=== PATIENT | female | born 1985 | race Hispanic/Latino ===

== ENCOUNTER 2017-12-14 09:30 | Day surgery (SDC) | payer OTHER ==
[2017-12-14] MEDS ORDERED: MIDAZOLAM HCL 2 MG/2 ML INJ ONE (10:02)
[2017-12-14] MEDS ORDERED: PROPOFOL 200 MG/20 ML VIAL IV ONE (10:02)
[2017-12-14] MEDS ORDERED: LIDOCAINE 2% MPF 5 ML VIAL ONE (10:03)
[2017-12-14] MEDS ORDERED: ONDANSETRON 4 MG/2 ML VIAL ONE (10:04)
[2017-12-14] MEDS ORDERED: FENTANYL CITR 100 MCG/2 ML ONE (10:04)
[2017-12-14] MEDS ORDERED: CEFAZOLIN/SWI 1gm 1 GM/10 ML SYR ONE (10:10)
[2017-12-14] MEDS ORDERED: NA CHLORIDE 0.9% 1,000 ML ONE (10:10)
--- NOTE | 2017-12-14 11:01 | P.BOP ---
Preoperative diagnosis: complex abscess right groin, cellulitis abdominal wall Postoperative diagnosis: same Primary procedure: Incision drainage and excisional debridement of complex abscess right groin Secondary procedure: 7x7 cm Estimated blood loss: <10cc Specimen: abscess devitalized tissue Findings: complex abscess right groin, cellulitis abdominal wall Anesthesia: General Transferred to: Recovery Room Condition: Good
[2017-12-14 13:47] VITALS: BP 140/68; TEMP 97.7; O2SAT 97
--- NOTE | 2017-12-14 22:19 | OP ---
Date of Procedure: 12/14/2017 Surgeon: Pierre Sr MD Preoperative Diagnoses: 1.Complex abscess, right groin. 2.Cellulitis, abdominal wall. 3.Diabetes. 4.Morbid obesity. Postoperative Diagnoses: 1.Complex abscess, right groin. 2.Cellulitis, abdominal wall. 3.Diabetes. 4.Morbid obesity. Procedures: Incision and drainage and excisional debridement of a complex abscess, right groin, 7 x 7 x 3 cm. Estimated Blood Loss: Less than 10 cc. Specimen: Abscess, cellulitis tissues. Findings: Complex abscess in the right groin, multiple loculations. Cellulitis of abdominal wall. Anesthesia: General plus local. Indications: This is a case of a 32-year-old patient who has history of diabetes and morbid obesity, comes to us with a right groin abscess. The patient went to a local ER where she received incision and drainage, but the area did not improve. So, she comes to my office. She has a large area of pus in that region and not responding to the current treatment. The patient has not been packing it. S o, the wound is already closed. So, we offered her surgical debridement with incision and drainage o f the complex abscess with benefits, alternatives, and risks including, but not limited to infection, bleeding, damage to adjacent structures, anesthesia complications, recurrence, VT, and even . She also understands this may not relieve any symptoms. She might need more than one surgical interv ention. She will require wound care. I talked to the patient's father who was at bedside and also h er mother on the phone. I explained to her the importance of being compliant with dressing changes a nd antibiotics. We gave antibiotics few days ago, but she has not started yet. She was also explain ed the importance of taking those antibiotics. Consent was signed. Description Of Procedure: The patient was brought to the operating room and placed in supine positio n. Anesthesia was done without complication. Abdominal and groin area were prepped and draped in [facility] sterile fashion. Local anesthesia was applied followed by sharp incision of the skin. There was some devitalized tissue in that area of the right groin region that was removed. That led us to a c omplex abscess with multiple loculations that were explored, opened, irrigated, hemostasis obtained, and then packed with wet-to-dry dressing. The patient tolerated the procedure well. The patient was sent to recovery in stable condition. Sponge counts and instrument counts were correct. ZULY/LINDSEY Voice ID: [id number] Report ID: [id number]
--- NOTE | 2017-12-14 22:25 | DS ---
Date of Discharge: 12/14/2017 Diagnoses: 1.Complex abscess, right groin. 2.Abdominal wall cellulitis. 3.Morbid obesity. 4.Diabetes. Procedures: Incision and drainage and excisional debridement of a complex abscess, right groin. Disposition: Home. Activity: As tolerated. No heavy lifting. Followup: Follow up in my office in 1 week. Call for appointment on [phone]. Discharge Instructions: The patient will need wet-to-dry dressing with normal saline daily. The pat srinivasa's mother said she is comfortable with dressing changes. Otherwise, she was advised she has opti ons also of home health agencies. She was explained the importance of also diabetes control. ZULY/LINDSEY Voice ID: [id number] Report ID: [id number]
== END 2017-12-14 13:45 | disposition home or self-care (01) ==
LOC: OR 09:30
PROVIDERS: ATTEND Surgery
PROC: 0JBC0ZZ Excision of Pelvic Region Subcutaneous Tissue and Fascia, Open Approach (ICD-10-PCS; principal; 2017-12-14 11:15)
DX: L02.214 Cutaneous abscess of groin (principal); L03.311 Cellulitis of abdominal wall; E11.9 Type 2 diabetes mellitus without complications; E66.01 Morbid (severe) obesity due to excess calories
CPT/HCPCS: 82962; 87070; 87075; 87077; 87186; 87205; 88304; J0690; J2250; J2405; J3010; J7030

== ENCOUNTER 2018-01-12 17:36 | Inpatient (IN) | payer OTHER ==
[2018-01-12] MEDS ORDERED: NA CHLORIDE 0.9% 1,000 ML ONE (21:28)
--- NOTE | 2018-01-12 21:47 | ER ---
Nurse's Notes [facility] Name: Inez Ennis Age: 32 yrs Sex: Female : 1985 Arrival Date: 01/12/2018 Time: 17:39 Bed 13 Private MD: Belem Mcelroy Diagnosis: Cellulitis and acute lymphangitis of trunk;Cutaneous abscess of abdominal wall;Type 1 diabetes mellitus Presentation: 01/12 17:44 Presenting complaint: Father states: abd abscess that started 1 week. Was seen by Dr jyoti Sr today. Transition of care: patient was not received from another setting of care. Onset of symptoms was January 05, 2018. 17:44 Method Of Arrival: Ambulatory sv 17:44 Acuity: CASTRO 3 sv 22:00 Care prior to arrival: None. bb 23:01 Risk Assessment: Do you want to hurt yourself or someone else? Patient reports no bb desire to harm self or others. Initial Sepsis Screen: Does the patient meet any 2 criteria? No. Patient's initial sepsis screen is negative. Does the patient have a suspected source of infection? No. Patient's initial sepsis screen is negative. 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 - Social history:: Smoking status: Patient/guardian denies using tobacco. - Ebola Screening: : No symptoms or risks identified at this time. - Family history:: not pertinent. Screenin:40 Abuse screen: Denies threats or abuse. Nutritional screening: No deficits noted. bb Tuberculosis screening: No symptoms or risk factors identified. Fall Risk None identified. Assessment: 20:40 General: Appears in no apparent distress. obese, Behavior is calm, cooperative. Pain: bb Denies pain. Neuro: Level of Consciousness is awake, alert, obeys commands, Oriented to person, place, situation, Speech is normal. Cardiovascular: Heart tones S1 S2 present Capillary refill < 3 seconds Patient's skin is warm and dry. Respiratory: Airway is patent Respiratory effort is even, unlabored. GI: Abdomen is obese, Abd is non tender X 4 quads. : No signs and/or symptoms were reported regarding the genitourinary system. Derm: pt has multiple abscesses on abdomen and on back. Musculoskeletal: Circulation, motion, and sensation intact. 22:00 Reassessment: No changes from previously documented assessment. Patient is alert, bb oriented x 3, equal unlabored respirations, skin warm/dry/pink. IV site patent, intact with fluids infusing, family at bedside. 23:00 Reassessment: Patient and/or family updated on plan of care and expected duration. Pain bb level reassessed. Patient is alert, oriented x 3, equal unlabored respirations, skin warm/dry/pink. IV site patent, intact with fluids infusing parent went to home to collect belongings will return. Vital Signs: 17:47 BP 179 / 97; Pulse 70; Resp 18; Temp 97.7; Pulse Ox 99% ; Weight 97.98 kg; Height 4 ft. sv 0 in. (121.92 cm); Pain 0/10; 22:44 BP 140 / 60; Pulse 73; Resp 18; Pulse Ox 98% ; Pain 0/10; ms 23:25 BP 114 / 55; Pulse 87; Resp 18 S; Pulse Ox 98% on R/A; bb 17:47 Body Mass Index 65.91 (97.98 kg, 121.92 cm) sv ED Course: 17:39 Patient arrived in ED. mr 17:39 Belem Mcelroy MD is Private Physician. mr 17:45 Triage completed. sv 17:47 Arm band placed on right wrist. sv 20:36 Anil Murillo MD is Attending Physician. nii 20:40 Patient has correct armband on for positive identification. Bed in low position. Call bb light in reach. Side rails up X2. Adult w/ patient. 21:38 X-ray completed. Portable x-ray completed in exam room. Patient tolerated procedure kc2 well. 21:39 XRAY Chest (1 view) In Process Unspecified. EDMS 21:44 Kane Newberry MD is Hospitalizing Provider. nii 21:50 Missed attempt(s): 22 gauge in left antecubital area. Bleeding controlled, band aid bb applied, catheter tip intact. 22:00 Initial lab(s) drawn, by me, sent to lab. T\\T\\S collected, blood band applied to patient. bb Inserted saline lock: 22 gauge in right antecubital area, using aseptic technique. Blood collected. 22:05 Faye Goel, RN is Primary Nurse. bb 23:01 No provider procedures requiring assistance completed. Patient admitted, IV remains in bb place. Administered Medications: 22:00 Drug: NS 0.9% 1000 ml Route: IV; Rate: 1 bolus; Site: right antecubital; bb 23:27 Follow up: IV Status: Completed infusion; IV Intake: 1000ml bb 22:44 Drug: Zosyn 3.375 grams Route: IVPB; Infused Over: 60 mins; Site: right antecubital; bb 23:20 Follow up: IV Status: Completed infusion; IV Intake: 100ml bb 23:21 Drug: vancoMYCIN 1 grams Route: IVPB; Infused Over: 2 hrs; Site: right antecubital; bb 23:27 Follow up: IV Status: Infusion continued upon admission bb Intake: 23:20 IV: 100ml; Total: 100ml. bb 23:27 IV: 1000ml; Total: 1100ml. bb Outcome: 21:46 Decision to Hospitalize by Provider. nii 23:02 Instructed on the need for admit. bb 23:26 Admitted to Tele accompanied by aisha, via stretcher, room 428, with chart, Report bb called to [place] BOX 23:26 Condition: stable 23:38 Patient left the ED. bb Signatures: Dispatcher [employer] Georgia Aguilar RN RN sv Anderson, Corey, MD MD cha Rivera, Maria mr Ballard, Brenda, RN RN bb Solis, Maria ms Carr, Kelsie kc2
--- NOTE | 2018-01-12 21:48 | EDPHYS ---
Physician Documentation [facility] Name: Inez Ennis Age: 32 yrs Sex: Female : 1985 Arrival Date: 01/12/2018 Time: 17:39 Bed 13 Private MD: Belem Mcelroy ED Physician Anil Murillo HPI: 01/12 21:38 This 32 yrs old Female presents to ER via Ambulatory with complaints of nii Abscess. 21:38 This 32 yrs old Female presents to ER via Ambulatory with complaints of nii Abscess. 21:38 The patient presents with an abscess of the abdomen, The patient presents with nii cellulitis of the abdomen, the patient presents with a swollen area of the abdomen. Description: The affected area is moderate sized, confluent, irregular, erythematous. Onset: The symptoms/episode began/occurred 3 day(s) ago. Possible cause(s): unknown. Associated signs and symptoms: The patient has no apparent associated signs or symptoms. Modifying factors: the symptoms are alleviated by nothing, the symptoms are aggravated by movement, pressure. Severity of symptoms: At their worst the symptoms were moderate, in the emergency department the symptoms are unchanged. The patient has experienced similar episodes in the past, multiple times. 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 - Social history:: Smoking status: Patient/guardian denies using tobacco. - Ebola Screening: : No symptoms or risks identified at this time. - Family history:: not pertinent. ROS: 21:38 Constitutional: Negative for fever, chills, and weight loss, Eyes: Negative for injury, nii pain, redness, and discharge, ENT: Negative for injury, pain, and discharge, Neck: Negative for injury, pain, and swelling, Cardiovascular: Negative for chest pain, palpitations, and edema, Respiratory: Negative for shortness of breath, cough, wheezing, and pleuritic chest pain, Abdomen/GI: Negative for abdominal pain, nausea, vomiting, diarrhea, and constipation, Back: Negative for injury and pain, : Negative for injury, bleeding, discharge, and swelling, MS/Extremity: Negative for injury and deformity, Neuro: Negative for headache, weakness, numbness, tingling, and seizure, Psych: Negative for depression, anxiety, suicide ideation, homicidal ideation, and hallucinations, Allergy/Immunology: Negative for hives, rash, and allergies, Endocrine: Negative for neck swelling, polydipsia, polyuria, polyphagia, and marked weight changes, Hematologic/Lymphatic: Negative for swollen nodes, abnormal bleeding, and unusual bruising. 21:38 Skin: Positive for abscess, cellulitis, erythema, of the right lower quadrant. Exam: 21:38 Constitutional: This is a well developed, well nourished patient who is awake, alert, nii and in no acute distress. Head/Face: Normocephalic, atraumatic. Eyes: Pupils equal round and reactive to light, extra-ocular motions intact. Lids and lashes normal. Conjunctiva and sclera are non-icteric and not injected. Cornea within normal limits. Periorbital areas with no swelling, redness, or edema. ENT: Nares patent. No nasal discharge, no septal abnormalities noted. Tympanic membranes are normal and external auditory canals are clear. Oropharynx with no redness, swelling, or masses, exudates, or evidence of obstruction, uvula midline. Mucous membranes moist. Neck: Trachea midline, no thyromegaly or masses palpated, and no cervical lymphadenopathy. Supple, full range of motion without nuchal rigidity, or vertebral point tenderness. No Meningismus. Chest/axilla: Normal chest wall appearance and motion. Nontender with no deformity. No lesions are appreciated. Cardiovascular: Regular rate and rhythm with a normal S1 and S2. No gallops, murmurs, or rubs. Normal PMI, no JVD. No pulse deficits. Respiratory: Lungs have equal breath sounds bilaterally, clear to auscultation and percussion. No rales, rhonchi or wheezes noted. No increased work of breathing, no retractions or nasal flaring. Abdomen/GI: Soft, non-tender, with normal bowel sounds. No distension or tympany. No guarding or rebound. No evidence of tenderness throughout. Back: No spinal tenderness. No costovertebral tenderness. Full range of motion. Female : Normal external genitalia. MS/ Extremity: Pulses equal, no cyanosis. Neurovascular intact. Full, normal range of motion. Neuro: Awake and alert, GCS 15, oriented to person, place, time, and situation. Cranial nerves II-XII grossly intact. Motor strength 5/5 in all extremities. Sensory grossly intact. Cerebellar exam normal. Normal gait. Psych: Awake, alert, with orientation to person, place and time. Behavior, mood, and affect are within normal limits. 21:38 Skin: abscess, that is small, that is moderate sized, of the right lower quadrant, cellulitis, that is moderate, induration, that is moderate is noted, injury, is not appreciated, lesion(s), are not present, no rash present. Vital Signs: 17:47 BP 179 / 97; Pulse 70; Resp 18; Temp 97.7; Pulse Ox 99% ; Weight 97.98 kg; Height 4 ft. sv 0 in. (121.92 cm); Pain 0/10; 22:44 BP 140 / 60; Pulse 73; Resp 18; Pulse Ox 98% ; Pain 0/10; ms 23:25 BP 114 / 55; Pulse 87; Resp 18 S; Pulse Ox 98% on R/A; bb 17:47 Body Mass Index 65.91 (97.98 kg, 121.92 cm) sv MDM: 20:36 Patient medically screened. [facility] 21:53 Data reviewed: vital signs, nurses notes, lab test result(s), EKG, radiologic studies, [facility] plain films. 01/12 20:43 Order name: Basic Metabolic Panel [facility] 01/12 20:43 Order name: BNP [facility] 01/12 20:43 Order name: CBC with Diff [facility] 01/12 20:43 Order name: Ckmb [facility] 01/12 20:43 Order name: CPK [facility] 01/12 20:43 Order name: LFT's [facility] 01/12 20:43 Order name: Magnesium [facility] 01/12 20:43 Order name: PT-INR [facility] 01/12 20:43 Order name: Ptt, Activated [facility] 01/12 20:43 Order name: Troponin (emerg Dept Use Only) [facility] 01/12 20:43 Order name: XRAY Chest (1 view) [facility] 01/12 20:43 Order name: Lipase [facility] 01/12 20:43 Order name: Type And Screen [facility] 01/12 23:18 Order name: ABO/RH no charge [facility] 01/12 20:43 Order name: EKG; Complete Time: 20:43 [facility] 01/12 20:43 Order name: Cardiac monitoring; Complete Time: 22:24 [facility] 01/12 20:43 Order name: EKG - Nurse/Tech; Complete Time: 22:24 [facility] 01/12 20:43 Order name: IV Saline Lock; Complete Time: 22: [facility] 01/12 20:43 Order name: Labs collected and sent; Complete Time: 22: [facility] 01/12 20:43 Order name: O2 Per Protocol; Complete Time: 22: [facility] 01/12 20:43 Order name: O2 Sat Monitoring; Complete Time: 22: [facility] 01/12 21:51 Order name: CONS Physician Consult [facility] 01/12 21:51 Order name: NPO EDGA Administered Medications: 22:00 Drug: NS 0.9% 1000 ml Route: IV; Rate: 1 bolus; Site: right antecubital; bb 23:27 Follow up: IV Status: Completed infusion; IV Intake: 1000ml bb 22:44 Drug: Zosyn 3.375 grams Route: IVPB; Infused Over: 60 mins; Site: right antecubital; bb 23:20 Follow up: IV Status: Completed infusion; IV Intake: 100ml bb 23:21 Drug: vancoMYCIN 1 grams Route: IVPB; Infused Over: 2 hrs; Site: right antecubital; bb 23:27 Follow up: IV Status: Infusion continued upon admission bb Disposition: 01/12/18 21:46 Hospitalization ordered by Kane Newberry for Inpatient Admission. Preliminary diagnosis are Cellulitis and acute lymphangitis of trunk, Cutaneous abscess of abdominal wall, Type 1 diabetes mellitus. - Bed requested for Telemetry/MedSurg (Inpatient). - Status is Inpatient Admission. bb - Condition is Fair. - Problem is new. - Symptoms have improved. UTI on Admission? No Signatures: Dispatcher [employer] [facility] Georgia Cash RN RN sv Woody, Diana, RN RN dw Anderson, Corey, MD MD cha Ballard, Brenda, RN RN bb Botello, Elizabeth eb Corrections: (The following items were deleted from the chart) 22:00 21:46 Hospitalization Ordered by Kane Newberry MD for Inpatient Admission. Preliminary dw diagnosis is Cellulitis and acute lymphangitis of trunk; Cutaneous abscess of abdominal wall; Type 1 diabetes mellitus. Bed requested for Telemetry/MedSurg (Inpatient). Status is Inpatient Admission. Condition is Fair. Problem is new. Symptoms have improved. UTI on Admission? No. nii 23:05 22:00 01/12/2018 21:46 Hospitalization Ordered by Kane Newberry MD for Inpatient eb Admission. Preliminary diagnosis is Cellulitis and acute lymphangitis of trunk; Cutaneous abscess of abdominal wall; Type 1 diabetes mellitus. Bed requested for Telemetry/MedSurg (Inpatient). Status is Inpatient Admission. Condition is Fair. Problem is new. Symptoms have improved. UTI on Admission? No. dw 23:38 23:05 01/12/2018 21:46 Hospitalization Ordered by Kane Newberry MD for Inpatient bb Admission. Preliminary diagnosis is Cellulitis and acute lymphangitis of trunk; Cutaneous abscess of abdominal wall; Type 1 diabetes mellitus. Bed requested for Telemetry/MedSurg (Inpatient). Status is Inpatient Admission. Condition is Fair. Problem is new. Symptoms have improved. UTI on Admission? No. eb
[2018-01-12] MEDS ORDERED: D50W 25 GM/50 ML SYRINGE IV PRN (21:50)
[2018-01-12] MEDS ORDERED: GLUCAGON 1 MG/VIAL IM PRN (21:50)
[2018-01-12] MEDS ORDERED: NA CHLORIDE 0.9% 1,000 ML IV SCH (22:00)
[2018-01-12 22:10] LABS: Absolute Lymphocytes (CBC) 3.3 K/uL (0.7-4.9); Absolute Monocytes 0.6 K/uL (0.1-1.3); Absolute Neutrophil 4.2 K/uL (1.8-8.0); Basophils % 0.6 % (0-1.3); Eosinophils % 4.3 % (0-4.4); Hematocrit 45.5 % (36.0-45.0); Lymphocytes % 39.3 % (15.3-44.8); MCH 28.7 pg (27.0-35.0); MCV 87.2 fL (80-100); MPV 9.5 fL (7.6-11.3); Monocytes % 6.9 % (3.3-12.3); RBC Red Blood Cell Count 5.23 M/uL (3.86-4.86)
[2018-01-12] MEDS ORDERED: PIPER/TAZO/NS 3.375gm 3.375 GM/100 ML BAG ONE (22:11)
[2018-01-12] MEDS ORDERED: VANCOMYCIN 1 GM/250 ML BAG ONE (22:11)
[2018-01-12 22:21] LABS: Protime INR 1.02
[2018-01-12 22:30] LABS: Glucose Level 180 mg/dL (65-120); Lipase 25 U/L (22-51)
[2018-01-12 22:36] LABS: Albumin 4.4 g/dL (3.2-5.5); Alkaline Phosphatase 244 IU/L (42-121); BUN Blood Urea Nitrogen 11 mg/dL (6-20); Bilirubin Direct 0.3 mg/dL (0-0.2); Bilirubin Total 0.7 mg/dL (0.3-1.2); Magnesium 1.9 mg/dL (1.8-2.5); Protein, Total 7.1 g/dL (6.0-8.3)
[2018-01-12 22:38] LABS: CKMB Creatine Kinase MB 0.8 ng/ml (0.3-4.0)
[2018-01-12 22:39] LABS: ALT/SGPT 52 IU/L (10-60); AST/SGOT 48 IU/L (10-42); Bicarbonate 27 mEq/L (21-31); Creatine Phosphokinase 48 IU/L (22-269); Potassium 3.8 mEq/L (3.6-5.0); Sodium Level 135 mEq/L (135-145)
--- NOTE | 2018-01-12 23:35 | P.HP ---
Certification for Inpatient Patient admitted to: Inpatient With expected LOS: >2 Midnights Practitioner: I am a practitioner with admitting privileges, knowledge of patient current condition, hospital course, and medical plan of care. Services: Services provided to patient in accordance with Admission requirements found in Title 42 Section 412.3 of the Code of Federal Regulations Patient History Date of Service: 01/12/18 Reason for admission: abscess/cellulitis History of Present Illness: Ms Ennis is a 32 years old woman with history of IDDM, Prader-Neeraj syndrome, recurrent abscess in her abdominal wall, who was referred by Dr Sr, for admission in order to do an I&D on a new abdominal wall abscess. She start with a redness area on her right lower abdomen about 3 days ago. She denied any fever or chills. She has previous history of MRSA infection. At arrival she was in non-distress, no fever, BP elevated. Lab work remarkable for normal WBC count, abnormal liver function test, but similar to previous exams. Allergies tranquilizer Allergy (Unknown, Uncoded 07/21/13 06:15) unknown "something fo Allergy (Uncoded 03/24/17 22:44) Unknown No Known Allergie Allergy (Uncoded 04/22/16 18:39) Unknown No Known Drug Allerg Allergy (Uncoded 05/23/17 18:17) Unknown tranquilizers Allergy (Uncoded 11/14/14 11:11) Unknown Home Medications: Glipizide [Glucotrol*] 10 mg PO BID 01/25/13 Metformin ER [Glucophage ER*] 1,000 mg PO BID 01/25/13 Insulin Glargine Human [Lantus*] 24 unit SQ BEDTIME 06/12/14 Codeine/APAP [Tylenol W/Codeine #3 tab] 1 tab PO Q4HP PRN #30 tab 12/14/17 NaCl 0.9% Irr Bottle [Ns Irrigation Bottle] 1,000 ml IR DAILY #1 btl 12/14/17 - Past Medical/Surgical History Diabetic: Yes -: Prader Willi Syndrome -: PING -: Morbid Obesity -: HTN -: Moderate Mental retardation -: Chronic lymphedema -: lymphedema -: Tonsillectomy -: eye sx: "dr pulled muscles" d/t drooping -: Multiple I/D's to the lower ext. due to previous infections. Psychosocial/ Personal History: Lives with family. She is dependent on her mother and father to help make decisions for her. - Family History Family History: Reviewed- Non-Contributory - Family History Mother Notes: Mother not at bedside - Social History Smoking Status: Never smoker Alcohol use: No CD- Drugs: No Caffeine use: Yes Place of Residence: Home Review of Systems 10-point ROS is otherwise unremarkable Physical Examination - Physical Exam General: Alert, In no apparent distress HEENT: Atraumatic, PERRLA, Mucous membr. moist/pink, EOMI, Sclerae nonicteric Neck: Supple, 2+ carotid pulse no bruit, No LAD, Without JVD or thyroid abnormality Respiratory: Clear to auscultation bilaterally, Normal air movement Cardiovascular: Regular rate/rhythm, Normal S1 S2 Gastrointestinal: Normal bowel sounds, No tenderness Musculoskeletal: No tenderness Integumentary: Rash(es), Tenderness/swelling (right lower abdomen area.), Erythema, Warmth Neurological: Normal speech, Sensation intact, Normal affect Lymphatics: No axilla or inguinal lymphadenopathy Assessment and Plan - Problems (Diagnosis) (1) Diabetes mellitus type 2 Current Visit: No Status: Active (2) cellulitis and abscess of abdomen Current Visit: Yes Status: Acute - Plan The patient will be admitted in order to do I&D in OR in AM by Dr Sr. Will start empiric treatment with Levaquin and Vanco IV. Continue BS control with SSI. Keep the patient NPO after MN. - Advance Directives Does patient have a Living Will: No Does patient have a Durable POA for Healthcare: No - Code Status/Comfort Care Code Status Assessed: Yes Code Status: Full Code
[2018-01-13 00:27] VITALS: BMI 9042.3
[2018-01-13 01:21] LABS: Urine Appearance CLEAR; Urine Bilirubin NEGATIVE (NEG); Urine Blood NEGATIVE (NEG); Urine Color YELLOW; Urine Glucose 3+ (NEG); Urine Protein NEGATIVE (NEG); Urine Specific Gravity >=1.030 (1.005-1.030); Urine Urobilinogen 0.2 mg/dL (0.2-1.0)
[2018-01-13 01:32] LABS: Urine Microscopic Reflex NO UMIC
[2018-01-13] MEDS ORDERED: ACETAMINOPHEN 500 MG TAB PO PRN (03:06)
[2018-01-13] MEDS ORDERED: ONDANSETRON 4 MG/2 ML VIAL IV PRN (03:06)
[2018-01-13] MEDS: NA CHLORIDE 0.9% 1,000 ML IV SCH ×3 (03:06→20:16)
[2018-01-13] MEDS ORDERED: VANCOMYCIN 750 MG in NA CHLORIDE 0.9% 150 ML IVPB ONE (03:30)
[2018-01-13] MEDS ORDERED: VANCOMYCIN 1 GM/VIAL ONE (03:56)
[2018-01-13] MEDS ORDERED: NA CHLORIDE 0.9% 250 ML ONE (03:57)
[2018-01-13 04:58] LABS: Absolute Lymphocytes (CBC) 2.9 K/uL (0.7-4.9); Absolute Monocytes 0.7 K/uL (0.1-1.3); Absolute Neutrophil 3.5 K/uL (1.8-8.0); Basophils % 0.5 % (0-1.3); Eosinophils % 5.2 % (0-4.4); Hematocrit 39.6 % (36.0-45.0); Lymphocytes % 38.4 % (15.3-44.8); MCH 28.8 pg (27.0-35.0); MCV 86.5 fL (80-100); MPV 9.7 fL (7.6-11.3); Monocytes % 9.8 % (3.3-12.3); RBC Red Blood Cell Count 4.58 M/uL (3.86-4.86)
[2018-01-13 05:25] LABS: BUN Blood Urea Nitrogen 11 mg/dL (6-20); Bicarbonate 23 mEq/L (21-31); Glucose Level 145 mg/dL (65-120); Potassium 3.4 mEq/L (3.6-5.0); Sodium Level 138 mEq/L (135-145)
[2018-01-13] MEDS: INSULIN -REGULAR HUMAN 50 UNIT/0.5 ML ML SQ SCH ×4 (07:30→20:16)
--- NOTE | 2018-01-13 07:42 | EKG ---
Test Date: 2018-01-12 Test Time: 22:19:39 Chip Mixer: MEASUREMENT RESULTS: Intervals: Rate: 93 TX: 144 QRSD: 76 QT: 366 QTc: 455 [place]: P: 25 TX: 144 QRS: 19 T: 23 INTERPRETIVE STATEMENTS: Normal sinus rhythm Normal ECG Compared to ECG 09/25/2016 08:39:39 no significant change from previous ECG Electronically Signed On 01-13-18 07:42:40 CDT by Jose Alfredo Dale
--- NOTE | 2018-01-13 07:50 | RAD REPORT ---
EXAM DESCRIPTION: Rigoberto Single View01/12/2018 9:39 pm CLINICAL HISTORY: Abdominal pain COMPARISON: 2013 FINDINGS: The lungs appear clear of acute infiltrate. The heart is normal size IMPRESSION: No acute abnormalities displayed
[2018-01-13] MEDS: Levofloxacin500mg IV 500 MG/100 ML BAG IV SCH (09:00)
[2018-01-13] MEDS ORDERED: VANCOMYCIN 1 GM in NA CHLORIDE 0.9% 500 ML IVPB SCH (09:00)
[2018-01-13] MEDS ORDERED: NA CHLORIDE 0.9% 1,000 ML ONE (09:08)
[2018-01-13] MEDS ORDERED: BUPIVACAINE 0.5% Inj,MDV 50 mL VIAL ONE (09:34)
[2018-01-13] MEDS ORDERED: FENTANYL CITR 100 MCG/2 ML ONE (09:57)
[2018-01-13] MEDS ORDERED: PROPOFOL 200 MG/20 ML VIAL IV ONE (09:58)
[2018-01-13] MEDS ORDERED: HYDRALAZINE HCL 20 MG/ML VIAL IV PRN (10:22)
--- NOTE | 2018-01-13 10:27 | P.PN ---
Subjective Date of Service: 01/13/18 Primary Care Provider: Dr. Mcelroy; Endocrinoogy-Dr. Barbour Chief Complaint: abscess/cellulitis Subjective: Doing well Physical Examination - Vital Signs Temperature: 97.3 F Blood Pressure: 189/81 Pulse: 89 Respirations: 18 Pulse Ox (%): 97 - Physical Exam General: Alert, In no apparent distress, Oriented x3, Cooperative HEENT: Atraumatic Neck: Supple Respiratory: Clear to auscultation bilaterally, Normal air movement Cardiovascular: Normal pulses, Regular rate/rhythm Gastrointestinal: Soft and benign, Non-distended, Other ( obesity) Integumentary: Other (Healing wound near the right inguinal area. Cellulitis, small abscess noted to the abdominal wall on the right side) Neurological: Normal speech, Normal strength at 5/5 x4 extr, Normal tone, Normal affect - Studies Medications List Reviewed: Yes Assessment & Plan - Problems (Diagnosis) (1) Prader-Willi syndrome Current Visit: Yes Status: Chronic Plan: Stable. (2) Hypertension Current Visit: Yes Status: Chronic Plan: Patient with history of hypertension. Blood pressure slightly elevated. Will provide IV medication. Will verify home medication. Qualifiers: Hypertension type: essential hypertension Qualified Code(s): I10 - Essential (primary) hypertension (3) Diabetes mellitus type 2 Onset Date: 01/13/18 Current Visit: Yes Status: Chronic Plan: Will continue with sliding scale. (4) cellulitis and abscess of abdomen Onset Date: 01/13/18 Current Visit: Yes Status: Acute Plan: Recurrent abscess cellulitis to the abdominal wall. Surgery plans for I and D. Anticipate possible discharge later today if okay with surgery otherwise patient continue with IV antibiotic therapy. (5) Morbid obesity Current Visit: No Status: Chronic Plan: Lifestyle modification education will be provided. Discharge Plan: Home Plan to discharge in: 24 Hours Time Spent Managing Pts Care (In Minutes): 55
[2018-01-13] MEDS ORDERED: DULAGLUTIDE SQ SCH (10:30)
--- NOTE | 2018-01-13 10:40 | P.BOP ---
Preoperative diagnosis: abdominal wall multiple abscess, diabetes, morbid obesity Postoperative diagnosis: same Primary procedure: 1. Incision and drainage medial abdominal wall complex abscess 10x 7x3cm Secondary procedure: 2. Incision and drainage lateral abdominal wall complex abscess 1c2o7cm Estimated blood loss: <20cc Specimen: pus culture , devitalized tissue Findings: see dictation Anesthesia: General Complications: None Transferred to: Recovery Room Condition: Good
[2018-01-13] MEDS ORDERED: HYDROCODONE/APAP 5/325 MG TAB PO PRN (11:13)
[2018-01-13] MEDS ORDERED: POTASSIUM CL SA 10 MEQ TAB PO ONE (13:00)
[2018-01-13] MEDS ORDERED: MAGNESIUM SULFATE 1 gm IVPB 1 GM/100 ML BAG IV ONE (14:03)
[2018-01-13] MEDS ORDERED: KCL 20 MEQ/100 mL IVPB 20 MEQ/100 ML BAG IV SCH (15:00)
[2018-01-13] MEDS: VANCOMYCIN 1.75 GM in NA CHLORIDE 0.9% 500 ML IVPB SCH (16:25)
[2018-01-13] MEDS ORDERED: POTASSIUM PHOS IN 0.9 % NACL 15 MMOL/250 ML BAG IV ONE (17:00)
--- NOTE | 2018-01-13 18:52 | OP ---
Date of Procedure: 01/13/2018 Surgeon: Pierre Sr MD Preoperative Diagnoses: Abdominal wall cellulitis. Abdominal wall multiple abscesses. Diabetes and morbid obesity. Postoperative Diagnoses: Abdominal wall cellulitis. Abdominal wall multiple abscesses. Diabetes an d morbid obesity. Procedures: 1.Incision and drainage of medial abdominal wall complex abscess, 10 x 7 x 3 cm. 2.Incision and drainage of lateral abdominal wall complex abscess, 5 x 4 x 3 cm. Specimen: Pus culture and devitalized tissue. Estimated Blood Loss: Less than 20 cc. Anesthesia: General plus local. Indication For Procedure: This is the case of a 32-year-old patient with multiple abdominal wall, gr oin, and body infection. The patient has history of diabetes. She has been trying to control this. She was advised also and her parents the importance of weight loss and diabetes control. It got to the point that they developed once again in some other areas, new abscesses, so she needs incision an d drainage with benefits, alternatives, and risks including, but not limited to infection, bleeding, damage to adjacent structures, anesthesia complication, recurrence, ME, and even . She also und erstood this may not relieve any symptoms. She might need more than one surgical intervention. She will need wound care. She signed a consent. The area of concern was marked by me and the patient in the holding room. Description Of Procedure: The patient was brought to the operating room, placed in supine position. Anesthesia was done without complication. She has a large pannus from morbid obesity, so we have em ployees to hold that abdomen up, and we were able to visualize 2 large area of abscess. Each 1 was d one individually, but using the same technique, which consisted of debridement of necrotic tissue, ac cess to the abscess deep inside, the medial side is about 10 x 7 x 3 cm and necrotic tissue was remov ed. Pus was obtained for culture. Multiple loculations were explored open and then packed wet-to-dr y dressing after putting local anesthetic and obtaining hemostasis. Then we moved to the second one which was the lateral aspect of the abdominal wall. It was an abscess on its own, from the previous one. It was about 5 x 4 x 3 cm and that was addressed using the same technique, with multi ple loculations also explored and opened. The patient tolerated the procedure well. The area was pa cked with wet-to-dry dressing, and then she has a groin wound, which is chronic from previous abscess es that were packed, that was also address wet-to-dry dressing. The patient tolerated the procedure well. The patient was sent to Recovery in stable condition. Sponge count and instrument counts were correct. ZULY/LINDSEY Voice ID: [id number] Report ID: [id number]
--- NOTE | 2018-01-13 19:01 | CON ---
History Of Present Illness: This is a 32-year-old female, I was consulted for abscess in the right a bdominal wall and groin area, which has been surgically debrided today earlier by surgical team. The patient has history of MRSA infection and Enterococcus faecalis in the past, which has been debrided also in the groin area before, about a month ago. Past Medical History: The patient has significant history of diabetes mellitus and morbid obesity, m ental retardation, lymphedema, hypertension. Past Surgical History: Right groin area sepsis surgery. Social History: Nonsmoker, nondrinker. Family History: Noncontributory. Medication: Levaquin and vancomycin. Allergies: TRANQUILIZERS. Review of Systems: A 10-point review was performed. Physical Examination: General: This is a 32-year-old female, lying in bed, not in any acute cardiopulmonary distress. Vital Signs: Temperature 97, pulse 88, respiration 18, blood pressure 140/67. HEENT: Unremarkable. Neck: Supple. Lungs: Basal crackles. Heart: S1, S2. Regular. Abdomen: Obese. Bowel sounds present. Abdominal wound and groin wound in surgical dressing at this time. Extremities: Nonpitting 2+ edema. Laboratory Data: Shows WBC 7.6, hemoglobin 13.2, platelets 123. Chemistry shows sodium 138, potassi um 3.4, chloride 108, bicarb 23, BUN 11, creatinine 0.3, glucose 145. Cultures are pending. UA show s no WBC. Chest x-ray done on shows no acute infiltrate. Assessment And Plan: Right abdominal and groin abscess status post debridement. I agree with vancom ycin and Levaquin. The patient's wound should be packed with iodoform gauze. Consider doing Hibicle ns cleansing of the body to get rid of the Staph. Continue vancomycin and Levaquin for total course of 2 weeks. Can be switched to oral on prior to discharge. Recommend also to weight loss and dietar y consult. NF/MODL Voice ID: [id number] Report ID: [id number]
[2018-01-14] MEDS: VANCOMYCIN 1.75 GM in NA CHLORIDE 0.9% 500 ML IVPB SCH (04:24)
[2018-01-14] MEDS: NA CHLORIDE 0.9% 1,000 ML IV SCH (04:24)
[2018-01-14 04:54] LABS: Absolute Lymphocytes (CBC) 2.5 K/uL (0.7-4.9); Absolute Monocytes 0.7 K/uL (0.1-1.3); Absolute Neutrophil 3.2 K/uL (1.8-8.0); Basophils % 0.7 % (0-1.3); Eosinophils % 3.9 % (0-4.4); Lymphocytes % 36.9 % (15.3-44.8); MCH 28.9 pg (27.0-35.0); MCV 86.9 fL (80-100); MPV 9.7 fL (7.6-11.3); Monocytes % 10.3 % (3.3-12.3); RBC Red Blood Cell Count 4.49 M/uL (3.86-4.86)
[2018-01-14 04:58] LABS: BUN Blood Urea Nitrogen 8 mg/dL (6-20); Bicarbonate 24 mEq/L (21-31); Glucose Level 154 mg/dL (65-120); Potassium 3.9 mEq/L (3.6-5.0); Sodium Level 140 mEq/L (135-145)
[2018-01-14] MEDS: INSULIN -REGULAR HUMAN 50 UNIT/0.5 ML ML SQ SCH ×2 (07:30→11:30)
[2018-01-14] MEDS: Levofloxacin500mg IV 500 MG/100 ML BAG IV SCH (08:53)
[2018-01-14] MEDS ORDERED: Empagliflozin (Jardiance) 25 MG TABLET PO SCH (09:00)
[2018-01-14] MEDS ORDERED: POTASSIUM CL SA 10 MEQ TAB PO ONE (09:00)
[2018-01-14 13:03] VITALS: BP 138/65; TEMP 97.8
[2018-01-14 13:06] VITALS: O2SAT 98
--- NOTE | 2018-01-14 17:04 | P.DS ---
Admission Date: 01/12/18 Discharge Date: 01/14/18 Primary Care Provider: Dr. Mcelroy; Endocrinoogy-Dr. Barbour Disposition: ROUTINE DISCHARGE Discharge Condition: GOOD Reason for Admission: abscess/cellulitis Consultations: Surgery Procedures: I&D - Problems (1) Panniculitis Status: Acute (2) Diabetes mellitus type 2 Onset Date: 01/13/18 Status: Chronic (3) Hypertension Status: Chronic Qualifiers: Hypertension type: essential hypertension Qualified Code(s): I10 - Essential (primary) hypertension (4) Morbid obesity Status: Chronic (5) Prader-Willi syndrome Status: Chronic Brief History of Present Illness: Ms Ennis is a 32 years old woman with history of IDDM, Prader-Neeraj syndrome, recurrent abscess in her abdominal wall, who was referred by Dr Hawkins, for admission in order to do an I&D on a new abdominal wall abscess. She start with a redness area on her right lower abdomen about 3 days ago. She denied any fever or chills. She has previous history of MRSA infection. At arrival she was in non-distress, no fever, BP elevated. Lab work remarkable for normal WBC count, abnormal liver function test, but similar to previous exams. Hospital Course: Overall Pt remained stable here in the hospital Pt was admitted to the hospital for Right Lower abd abscess. Surgery was consulted. Patient was started on IV vancomycin and Zosyn here in the hospital. Patient had a surgical debridement here in the hospital with surgery and did well overall and was discharged home after that under stable condition. Question will be following up with surgery in wound care clinic every Thursday and will have a followup appointment with Surgery in 1 week as well. Patient will be getting p.o. Levaquin for total of 2 weeks along with doxycycline as well. Id have was also consulted here in the hospital who agreed with the above plan and patient was then discharged home under stable condition. Vital Signs/Physical Exam: Temp Pulse Resp BP Pulse Ox 97.8 F 80 16 138/65 97 01/14/18 12:00 01/14/18 12:00 01/14/18 12:00 01/14/18 12:01/14/18 12:00 General: Alert, In no apparent distress HEENT: Atraumatic, PERRLA, EOMI Neck: Supple, JVD not distended Respiratory: Clear to auscultation bilaterally, Normal air movement Cardiovascular: Regular rate/rhythm, Normal S1 S2 Gastrointestinal: Normal bowel sounds, Soft and benign, Non-distended, No tenderness Musculoskeletal: No tenderness Integumentary: Other (Wound currently C/D/I. Dressing in Place without any drainage. ) Neurological: Normal speech, Normal tone, Normal affect Lymphatics: No axilla or inguinal lymphadenopathy Laboratory Data at Discharge: WBC 6.7 K/uL (4.3-10.9) 01/14/18 04:04 Hgb 12.9 g/dL (12.0-15.0) 01/14/18 04:04 Hct 39.0 % (36.0-45.0) 01/14/18 04:04 Plt Count 126 K/uL (152-406) L 01/14/18 04:04 PT 12.0 SECONDS (9.5-12.5) 01/12/18 22:00 INR 1.02 01/12/18 22:00 APTT 31.6 SECONDS (24.3-36.9) 01/12/18 22:00 Sodium 140 mEq/L (135-145) 01/14/18 04:04 Potassium 3.9 mEq/L (3.6-5.0) 01/14/18 04:04 BUN 8 mg/dL (6-20) 01/14/18 04:04 Creatinine < 0.30 mg/dL (0.44-1.00) L 01/14/18 04:04 Glucose 154 mg/dL (65-120) H 01/14/18 04:04 Magnesium 2.0 mg/dL (1.8-2.5) 01/14/18 04:04 Total Bilirubin 0.7 mg/dL (0.3-1.2) 01/12/18 22:00 AST 48 IU/L (10-42) H 01/12/18 22:00 ALT 52 IU/L (10-60) 01/12/18 22:00 Alkaline Phosphatase 244 IU/L (42-121) H 01/12/18 22:00 B-Natriuretic Peptide 32 pg/ml (<=100) 01/12/18 22:00 Lipase 25 U/L (22-51) 01/12/18 22:00 Home Medications: Metformin ER [Glucophage ER*] 1,000 mg PO BID 01/25/13 NaCl 0.9% Irr Bottle [Ns For Irrigation Bottle*] 1,000 ml IR DAILY #1 btl Dulaglutide [Trulicity] 1 carlotta SQ Q7D 01/13/18 Empagliflozin [Jardiance] 1 tab PO DAILY 01/13/18 Chlorhexidine Gluconate [Hibiclens] 946 ml TP DAILY #1 bottle 01/14/18 Doxycycline Monohydrate 100 mg PO BID #28 capsule 01/14/18 Levofloxacin [Levaquin] 500 mg PO DAILY #14 tab 01/14/18 New Medications: Chlorhexidine Gluconate [Hibiclens] 946 ml TP DAILY #1 bottle Doxycycline Monohydrate 100 mg PO BID #28 capsule Levofloxacin [Levaquin] 500 mg PO DAILY #14 tab Patient Discharge Instructions: Please f.u with Dr hawkins at the wound healing center on thursday for your wound care check and treatment. New medication. Doxycyline 100mg BID for 14 days. levaquin 500mg daily for 14 days. Wound cleaning instructions. -wound to be packed with iodoform gauze. - Hibiclens cleansing of the body daily Diet: Regular Activity: Ad lm Followup: Garrison Downing MD [ACTIVE - CAN ADMIT] - 1 Week (Call to schedule an appointment) Pierre Hawkins MD [ACTIVE - CAN ADMIT] - 1 Week
[2018-01-17] MEDS ORDERED: DULAGLUTIDE SQ SCH (09:00)
== END 2018-01-14 12:36 | disposition home or self-care (01) | DRG 603 ==
LOC: ER 17:36 → ERHOLD 21:48 → 4TH 23:31
PROVIDERS: ADMIT Internal Medicine; ATTEND Internal Medicine
PROC: 0J983ZZ Drainage of Abdomen Subcutaneous Tissue and Fascia, Percutaneous Approach (ICD-10-PCS; principal; 2018-01-13 09:45)
DX: L02.211 Cutaneous abscess of abdominal wall (principal); Z68.44 Body mass index [BMI] 60.0-69.9, adult; Q87.1 Congenital malformation syndromes predominantly associated with short stature; L03.311 Cellulitis of abdominal wall; E66.01 Morbid (severe) obesity due to excess calories; E11.9 Type 2 diabetes mellitus without complications; I10 Essential (primary) hypertension; F71 Moderate intellectual disabilities
CPT/HCPCS: 36415; 71045; 80048; 80076; 81003; 82550; 82553; 82962; 83690; 83735; 83880; 84132; 84484; 85025; 85610; 85730; 86850; 86900; 86901; 87070; 87075; 87077; 87186; 87205; 88304; 88305; 93005; 96361; 96365; 96375; 99285; J2405; J2543; J3010; J3370; J7030

== ENCOUNTER 2018-07-14 21:50 | Inpatient (IN) | payer OTHER ==
[2018-07-14 22:34] LABS: Arterial Blood Carboxyhemoglob 1.4 % (0-1.5); Blood Gas Oxyhemoglobin 89.5 % (94-97); Blood O2 Saturation 91.8 % (92-98.5)
[2018-07-14] MEDS ORDERED: NA CHLORIDE 0.9% 3,000 ML ONE (23:02)
[2018-07-14 23:29] LABS: Urine Blood NEGATIVE (NEG); Urine Glucose 3+ (NEG); Urine Protein TRACE (NEG); Urine pH 6.5 (5.0-7.0)
[2018-07-14 23:40] LABS: Urine Bacteria <20 /HPF (<20); Urine Culture Reflex Order NOT NEEDED; Urine RBC NONE SEEN /HPF (NONE SEEN)
--- NOTE | 2018-07-14 23:54 | ER ---
Nurse's Notes [facility] Emergency Department Name: Inez Ennis Age: 33 yrs Sex: Female : 1985 Arrival Date: 07/14/2018 Time: 21:54 Bed 4 Private MD: Diagnosis: Pneumonia due to other specified bacteria Presentation: 07/14 22:00 Presenting complaint: Mother states: that they checked pts blood sugar at 2130 and it fc was over 600. She then gave her her normal night medications. Pt is also being treated for cough and cold with Augmentin which she started yesterday. Transition of care: patient was not received from another setting of care. Onset of symptoms was July 14, 2018 at 21:30. Risk Assessment: Do you want to hurt yourself or someone else? Patient reports no desire to harm self or others. Initial Sepsis Screen: Does the patient meet any 2 criteria? HR > 90 bpm. Yes Does the patient have a suspected source of infection? Yes: Productive cough/pneumonia. Care prior to arrival: None. 22:00 Method Of Arrival: Ambulatory fc 22:00 Acuity: CASTRO 2 fc Historical: - Allergies: 22:19 tranquliezers; fc - Home Meds: 22:19 Jardiance 25 mg oral tab 1 tab nightly [Active]; Trulicity 0.75 mg/0.5 mL subcutaneous fc pnij every 7 days [Active]; metformin 1,000 mg Oral tab 1 tab 2 times per day [Active]; - PMHx: 22:19 Diabetes - IDDM; Hypertension; Prader-Willi syndrome; fc - PSHx: 22:19 Tonsillectomy; eye surgery; fc - Immunization history:: Last tetanus immunization: unknown, Flu vaccine is not up to date. - Social history:: Smoking status: Patient/guardian denies using tobacco, Patient/guardian denies using alcohol, street drugs. - Ebola Screening: : Patient negative for fever greater than or equal to 101.5 degrees Fahrenheit, and additional compatible Ebola Virus Disease symptoms Patient denies exposure to infectious person Patient denies travel to an Ebola-affected area in the 21 days before illness onset. Screenin:00 Abuse screen: Denies threats or abuse. Nutritional screening: No deficits noted. fc Tuberculosis screening: No symptoms or risk factors identified. Fall Risk None identified. Assessment: 22:00 General: Appears uncomfortable, Behavior is calm, cooperative, appropriate for age. ea Pain: Denies pain. Neuro: Level of Consciousness is awake, alert, obeys commands, Oriented to person, place, time. Cardiovascular: Heart tones S1 S2 present Patient's skin is warm and dry. Respiratory: Airway is patent Respiratory effort is even, unlabored, Respiratory pattern is regular, symmetrical, Breath sounds are diminished bilaterally. GI: Bowel sounds present X 4 quads. GI: Abdomen is obese. Derm: Skin is pink, warm \T\ dry. 23:50 Reassessment: Patient and/or family updated on plan of care and expected duration. Pain ea level reassessed. Patient is alert, oriented x 3, equal unlabored respirations, skin warm/dry/pink. Multiple missed IV attempts, charge nurse notified for attempt in midline placement. 07/15 00:56 Reassessment: Patient and/or family updated on plan of care and expected duration. Pain ea level reassessed. Dr. Dan at bedside placing central line, pt tolerating well. 01:30 Reassessment: Patient and/or family updated on plan of care and expected duration. Pain ea level reassessed. Patient is alert, oriented x 3, equal unlabored respirations, skin warm/dry/pink. 02:13 Reassessment: Patient and/or family updated on plan of care and expected duration. Pain ea level reassessed. Patient is alert, oriented x 3, equal unlabored respirations, skin warm/dry/pink. Report given to Etta BOX. Vital Signs: 07/14 22:00 BP 208 / 117; Pulse 135; Resp 20; Temp 100.4(O); Pulse Ox 78% on R/A; Weight 97.98 kg fc (R); Height 4 ft. 0 in. (121.92 cm) (R); Pain 0/10; 22:51 BP 169 / 61; Pulse 116; Resp 16 S; Pulse Ox 94% on R/A; jd3 23:00 BP 166 / 61; Pulse 109; Resp 20; Pulse Ox 95% ; ea 07/15 01:32 BP 145 / 70; Pulse 109; Resp 20; Temp 99.5(O); Pulse Ox 95% on 2 lpm NC; ea 02:00 BP 143 / 74; Pulse 110; Resp 20; Pulse Ox 95% on 2 lpm NC; ea 07/14 22:00 Body Mass Index 65.91 (97.98 kg, 121.92 cm) fc ED Course: 07/14 21:54 Patient arrived in ED. ds1 22:00 Rahul Paige MD is Attending Physician. ps1 22:00 Arm band placed on Patient placed in an exam room, on a stretcher. fc 22:00 Patient has correct armband on for positive identification. Placed in gown. Bed in low fc position. Call light in reach. Side rails up X2. Adult w/ patient. Pulse ox on. NIBP on. 22:10 Oxygen administration via nasal cannula \T\ 2L/min Response to oxygen therapy: symptoms fc improved. 22:15 Triage completed. fc 22:25 Durga Martinez, ISAURO is Primary Nurse. jd3 22:47 Chest Single View XRAY In Process Unspecified. EDMS 23:20 Missed attempt(s): 22 gauge in left antecubital area. Bleeding controlled, band aid ea applied, catheter tip intact. 23:30 Missed attempt(s): 24 gauge in left antecubital area. Bleeding controlled, band aid ea applied, catheter tip intact. 23:50 Missed attempt(s): 22 gauge in left forearm. Bleeding controlled, band aid applied, ea catheter tip intact. 23:51 Rahul Paige MD is Hospitalizing Provider. ps1 23:54 Hospitalizing Provider role handed off by Rahul Paige MD ps1 23:54 Kane Newberry MD is Hospitalizing Provider. ps1 07/15 00:15 Missed attempt(s): 18 gauge bilateral upper arms with midlines. Bleeding controlled, fc band aid applied, catheter tip intact. 00:56 Assisted provider with central line placement. Set up central line tray. Triple lumen ea line placed in right femoral. Line placed by Kane Newberry MD Placement verified by blood return, Dressed with Tegaderm, Blood was collected. Patient tolerated well. 02:13 Patient admitted, IV remains in place. ea Administered Medications: 01:10 Drug: NS 0.9% (30 ml/kg) 30 ml/kg Route: IV; Rate: bolus; Site: right femoral; ea 01:56 Follow up: Response: No adverse reaction; IV Status: Infusion continued upon admission; ea IV Intake: 1000ml 01:20 Drug: Rocephin - (cefTRIAXone) 1 grams Route: IVPB; Infused Over: 30 mins; Site: right ea femoral; 01:55 Follow up: Response: No adverse reaction; IV Status: Completed infusion ea 01:53 Drug: AZITHromycin 500 mg Route: IVPB; Infused Over: 1 hrs; Site: right femoral; ea 02:15 Follow up: Response: No adverse reaction; IV Status: Completed infusion ea Point of Care Testing: Blood Glucose: 07/14 22:15 Blood Glucose: 448 mg/dL; fc Ranges: Intake: 07/15 01:56 IV: 1000ml; Total: 1000ml. ea Outcome: 07/14 23:54 Decision to Hospitalize by Provider. ps1 07/15 01:00 Instructed on the need for admit. ea 02:30 Admitted to Med/surg accompanied by nurse, room 409, with oxygen, with chart, Report ea called to Etta RN 02:30 Condition: stable 02:40 Patient left the ED. ea Signatures: Dispatcher [employer] EDMS Roxana Dhaliwal RN RN Shelia Galicia ds1 Anuja Bagely RN RN Durga Calzada RN RN jRahul Rios MD MD ps1
--- NOTE | 2018-07-14 23:54 | EDPHYS ---
Physician Documentation [facility] Name: Inez Ennis Age: 33 yrs Sex: Female : 1985 Arrival Date: 07/14/2018 Time: 21:54 Bed 4 Private MD: ED Physician Rahul Paige HPI: 07/14 22:21 This 33 yrs old Female presents to ER via Ambulatory with complaints of High ps1 Blood Sugar - +600. 22:21 Prader-Willi with hyperglycemia and cough, recently started on amox for same. Possible ps1 PNA. . Historical: - Allergies: 22:19 tranquliezers; fc - Home Meds: 22:19 Jardiance 25 mg oral tab 1 tab nightly [Active]; Trulicity 0.75 mg/0.5 mL subcutaneous fc pnij every 7 days [Active]; metformin 1,000 mg Oral tab 1 tab 2 times per day [Active]; - PMHx: 22:19 Diabetes - IDDM; Hypertension; Prader-Willi syndrome; fc - PSHx: 22:19 Tonsillectomy; eye surgery; fc - Immunization history:: Last tetanus immunization: unknown, Flu vaccine is not up to date. - Social history:: Smoking status: Patient/guardian denies using tobacco, Patient/guardian denies using alcohol, street drugs. - Ebola Screening: : Patient negative for fever greater than or equal to 101.5 degrees Fahrenheit, and additional compatible Ebola Virus Disease symptoms Patient denies exposure to infectious person Patient denies travel to an Ebola-affected area in the 21 days before illness onset. Vital Signs: 22:00 BP 208 / 117; Pulse 135; Resp 20; Temp 100.4(O); Pulse Ox 78% on R/A; Weight 97.98 kg fc (R); Height 4 ft. 0 in. (121.92 cm) (R); Pain 0/10; 22:51 BP 169 / 61; Pulse 116; Resp 16 S; Pulse Ox 94% on R/A; jd3 23:00 BP 166 / 61; Pulse 109; Resp 20; Pulse Ox 95% ; ea 07/15 01:32 BP 145 / 70; Pulse 109; Resp 20; Temp 99.5(O); Pulse Ox 95% on 2 lpm NC; ea 02:00 BP 143 / 74; Pulse 110; Resp 20; Pulse Ox 95% on 2 lpm NC; ea 07/14 22:00 Body Mass Index 65.91 (97.98 kg, 121.92 cm) fc MDM: 07/14 22:38 Patient medically screened. [facility] 07/14 22:21 Order name: Blood Culture Adult (2) ps1 07/14 22:21 Order name: CBC with Diff; Complete Time: 01:59 ps1 07/14 22:21 Order name: Lactate ps1 07/14 22:21 Order name: Lipase ps1 07/14 22:21 Order name: Procalcitonin ps1 07/14 22:21 Order name: Protime (+inr); Complete Time: 01:59 ps1 07/14 22:21 Order name: Troponin (emerg Dept Use Only) ps1 07/14 22:21 Order name: Urine Microscopic Only; Complete Time: 23:51 ps1 07/14 22:21 Order name: Chest Single View XRAY ps1 07/14 22:21 Order name: ABG; Complete Time: 22:53 [facility] 07/14 22:21 Order name: CMP [facility] 07/14 23:24 Order name: Urine Dipstick--Ancillary (enter results); Complete Time: 23:51 ms 07/14 23:24 Order name: Urine --Ancillary (enter results); Complete Time: 23:51 ms 07/15 00:57 Order name: Influenza Screen (A EDMS 07/14 22:21 Order name: Accucheck; Complete Time: 22:50 ps1 07/14 22:21 Order name: Cardiac monitoring; Complete Time: 22:25 ps1 07/14 22:21 Order name: EKG - Nurse/Tech; Complete Time: 01:54 ps1 07/14 22:21 Order name: IV Saline Lock - Large Bore; Complete Time: 00:53 ps1 07/14 22:21 Order name: Labs collected and sent; Complete Time: 01:26 ps1 07/14 22:21 Order name: O2 Per Protocol; Complete Time: 22:26 ps1 07/14 22:21 Order name: O2 Sat Monitoring; Complete Time: 22:26 ps1 07/14 22:21 Order name: Urine Dipstick-Ancillary (obtain specimen); Complete Time: 23:35 ps1 Administered Medications: 07/15 01:10 Drug: NS 0.9% (30 ml/kg) 30 ml/kg Route: IV; Rate: bolus; Site: right femoral; ea 01:56 Follow up: Response: No adverse reaction; IV Status: Infusion continued upon admission; ea IV Intake: 1000ml 01:20 Drug: Rocephin - (cefTRIAXone) 1 grams Route: IVPB; Infused Over: 30 mins; Site: right ea femoral; 01:55 Follow up: Response: No adverse reaction; IV Status: Completed infusion ea 01:53 Drug: AZITHromycin 500 mg Route: IVPB; Infused Over: 1 hrs; Site: right femoral; ea 02:15 Follow up: Response: No adverse reaction; IV Status: Completed infusion Point of Care Testing: Blood Glucose: 07/14 22:15 Blood Glucose: 448 mg/dL; Ranges: Critical Glucose Levels:Adult <50 mg/dl or >400 mg/dl <40 mg/dl or >180 mg/dl Disposition: 07/14/18 23:54 Hospitalization ordered by Kane Newberry for Inpatient Admission. Preliminary diagnosis is Pneumonia due to other specified bacteria. - Bed requested for Telemetry/MedSurg (Inpatient). - Status is Inpatient Admission. ea - Condition is Stable. - Problem is new. - Symptoms are unchanged. UTI on Admission? No Addendum: 07/22/2018 17:33 Addendum: ROS: cough, fever, malaise, no dysuria, frequency, abd pain, no AMS. PHYS: p s1 Alert and oriented. NCAT, body habitus c.w prader willi. PEERL, EOMI, Ronchi in RML, Tachycardia, BS +, Soft NT. MDM: c/w PNA on CXR, fluids, abx and plan for admission. Not in DKA. . Signatures: Dispatcher [employer] EDCT Roxana Dhaliwal RN RN fc Garcia, Cindy, RN RN cg Antunez, Elena, RN RN ea Singer, Phillip, MD MD ps1 Corrections: (The following items were deleted from the chart) 07/14 23:54 23:54 Hospitalization Ordered by Rahul Paige MD for Inpatient Admission. Preliminary ps1 diagnosis is Pneumonia due to other specified bacteria. Bed requested for Telemetry/MedSurg (Inpatient). Status is Inpatient Admission. Condition is Stable. Problem is new. Symptoms are unchanged. UTI on Admission? No. ps1 07/15 00:55 07/14 23:54 07/14/2018 23:54 Hospitalization Ordered by Kane Newberry MD for Inpatient cg Admission. Preliminary diagnosis is Pneumonia due to other specified bacteria. Bed requested for Telemetry/MedSurg (Inpatient). Status is Inpatient Admission. Condition is Stable. Problem is new. Symptoms are unchanged. UTI on Admission? No. ps1 07/15 02:40 00:55 07/14/2018 23:54 Hospitalization Ordered by Kane Newberry MD for Inpatient ea Admission. Preliminary diagnosis is Pneumonia due to other specified bacteria. Bed requested for Telemetry/MedSurg (Inpatient). Status is Inpatient Admission. Condition is Stable. Problem is new. Symptoms are unchanged. UTI on Admission? No. cg
[2018-07-15] MEDS ORDERED: AZITHROMYCIN 500 MG/250 ML BAG ONE (00:59)
[2018-07-15] MEDS ORDERED: CEFTRIAXONE/SWI 1gm 1 GM/10 ML SYR ONE (00:59)
--- NOTE | 2018-07-15 01:17 | P.HP ---
Certification for Inpatient Patient admitted to: Inpatient With expected LOS: >2 Midnights Practitioner: I am a practitioner with admitting privileges, knowledge of patient current condition, hospital course, and medical plan of care. Services: Services provided to patient in accordance with Admission requirements found in Title 42 Section 412.3 of the Code of Federal Regulations Patient History Date of Service: 07/14/18 Reason for admission: pneumonia History of Present Illness: Ms nEnis is a 33 years old woman with history of Prader-Willi Syndrome, IDDM, obesity, who start about 2 days ago with productive cough with yellow sputum, fever and some SOB. She went to her PCP yesterday and was prescribed Augmentin. Today, her mother check her BS and it was more than 600 mg/dl. She call her PCP and was referred to ED for evaluation. At presentation in ER the patient was in non-distress, temp 100.4F, elevated BP 208/117 O2 Sat 78% on RA. CXR remarkable for bilateral infiltrate, more on the right base consistent with pneumonia. Lab work is still pending due to difficult IV access. Allergies tranquilizer Allergy (Unknown, Uncoded 07/21/13 06:15) unknown Home Medications: Metformin ER [Glucophage ER*] 1,000 mg PO BID 01/25/13 NaCl 0.9% Irr Bottle [Ns For Irrigation Bottle*] 1,000 ml IR DAILY #1 btl Dulaglutide [Trulicity] 1 carlotta SQ Q7D 01/13/18 Empagliflozin [Jardiance] 1 tab PO DAILY 01/13/18 Chlorhexidine Gluconate [Hibiclens] 946 ml TP DAILY #1 bottle 01/14/18 Doxycycline Monohydrate 100 mg PO BID #28 capsule 01/14/18 levoFLOXacin [Levaquin] 500 mg PO DAILY #14 tab 01/14/18 - Past Medical/Surgical History Diabetic: Yes -: Prader Willi Syndrome -: PING -: Morbid Obesity -: HTN -: Moderate Mental retardation -: Chronic lymphedema -: lymphedema -: Tonsillectomy -: eye sx: "dr pulled muscles" d/t drooping -: Multiple I/D's to the lower ext. due to previous infections. Psychosocial/ Personal History: Lives with family. She is dependent on her mother and father to help make decisions for her. - Family History Father Notes: no chronic illness Mother -: Hypertension, Diabetes Notes: Mother not at bedside - Social History Smoking Status: Never smoker Alcohol use: No CD- Drugs: No Caffeine use: Yes Place of Residence: Home Review of Systems 10-point ROS is otherwise unremarkable Physical Examination - Physical Exam General: Alert, In no apparent distress HEENT: Atraumatic, PERRLA, Mucous membr. moist/pink, EOMI, Sclerae nonicteric Neck: Supple, 2+ carotid pulse no bruit, No LAD Respiratory: Diminished, Crackles/rales (bibasilar crackles more on the right base than the left) Cardiovascular: Regular rate/rhythm, Normal S1 S2 Gastrointestinal: Normal bowel sounds, No tenderness Musculoskeletal: No tenderness Integumentary: No rashes Neurological: Normal speech, Normal affect, Abnormal tone (flaccid tone) Lymphatics: No axilla or inguinal lymphadenopathy Assessment and Plan - Problems (Diagnosis) (1) Acute respiratory failure Current Visit: Yes Status: Acute Qualifiers: Respiratory failure complication: hypoxia Qualified Code(s): J96.01 - Acute respiratory failure with hypoxia (2) Pneumonia Onset Date: 06/13/14 Current Visit: No Status: Acute Qualifiers: Pneumonia type: due to unspecified organism Laterality: bilateral Lung location: lower lobe of lung Qualified Code(s): J18.1 - Lobar pneumonia, unspecified organism (3) Diabetes mellitus type 2 Onset Date: 01/13/18 Current Visit: No Status: Chronic (4) Hypertension Current Visit: No Status: Chronic Qualifiers: Hypertension type: essential hypertension Qualified Code(s): I10 - Essential (primary) hypertension (5) Morbid obesity Current Visit: No Status: Chronic (6) Prader-Willi syndrome Current Visit: No Status: Chronic - Plan The patient will be admitted to the hospital due to acute respiratory failure due to Pneumonia. Will order empiric IV Levaquin, breathing treatments, IV fluids and oxygen support. Awaiting Lab work. Consult Dr Gomez for evaluation and recommendations. - Advance Directives Does patient have a Living Will: No Does patient have a Durable POA for Healthcare: Yes - Code Status/Comfort Care Code Status Assessed: Yes Code Status: Full Code
[2018-07-15 01:26] LABS: Absolute Lymphocytes (CBC) 1.6 K/uL (0.7-4.9); Absolute Neutrophil 5.3 K/uL (1.8-8.0); Basophils % 0.5 % (0-1.3); Hematocrit 47.1 % (36.0-45.0); Lymphocytes % 20.3 % (15.3-44.8); MCH 30.1 pg (27.0-35.0); MCV 88.3 fL (80-100); MPV 9.5 fL (7.6-11.3); Monocytes % 12.6 % (3.3-12.3); RBC Red Blood Cell Count 5.33 M/uL (3.86-4.86)
--- NOTE | 2018-07-15 01:26 | P.OP ---
Date of Service: 07/15/18 Findings and Operative Technique Central Venous Catheter Placement Indication: Intravenous access A time-out was completed verifying correct patient, procedure, site, positioning. The patient was placed in a dependent position appropriate for central line placement based on the vein to be cannulated. The patients right groin was prepped and draped in sterile fashion. 1% Lidocaine was used to anesthetize the surrounding skin area. A triple lumen <9-Mongolian> Cordis catheter was introduced into the the common femoral vein using the Seldinger technique . The catheter was threaded smoothly over the guide wire and appropriate blood return was obtained. Each lumen of the catheter was evacuated of air and flushed with sterile saline. The catheter was then sutured in place to the skin and a sterile dressing applied. Perfusion to the extremity distal to the point of catheter insertion was checked and found to be adequate. Estimated Blood Loss: 6 cc The patient tolerated the procedure well and there were no complications.
[2018-07-15] MEDS ORDERED: ONDANSETRON 4 MG/2 ML VIAL ONE (01:38)
[2018-07-15 02:26] LABS: ALT/SGPT 87 U/L (12-78); AST/SGOT 56 U/L (15-37); Albumin 3.6 g/dL (3.4-5.0); Alkaline Phosphatase 497 U/L (45-117); BUN Blood Urea Nitrogen 10 mg/dL (7-18); Bicarbonate 25 mmol/L (21-32); Bilirubin Total 0.7 mg/dL (0.2-1.0); Glucose Level 277 mg/dL (74-106); Lipase 130 U/L (73-393); Potassium 3.9 mmol/L (3.5-5.1); Protein, Total 6.8 g/dL (6.4-8.2); Sodium Level 140 mmol/L (136-145); Troponin (Emerg Dept Use Only) < 0.02 ng/mL (0.0-0.045)
[2018-07-15] MEDS ORDERED: ONDANSETRON 4 MG/2 ML VIAL IV PRN (03:21)
[2018-07-15] MEDS: NA CHLORIDE 0.9% 1,000 ML IV SCH ×3 (03:21→21:14)
[2018-07-15] MEDS ORDERED: HYDRALAZINE HCL 20 MG/ML VIAL IV PRN (03:21)
[2018-07-15] MEDS: Levofloxacin 750mg IV 750 MG/150 ML BAG IV SCH (03:53)
[2018-07-15] MEDS ORDERED: POTASSIUM CL SA 10 MEQ TAB PO ONE (06:39)
--- NOTE | 2018-07-15 07:06 | RAD REPORT ---
EXAM DESCRIPTION: RAD - Chest Single View - 07/14/2018 10:50 pm CLINICAL HISTORY: Cough, shortness of breath, hyperglycemia COMPARISON: January 12 TECHNIQUE: AP portable chest image was obtained 2236 hours . FINDINGS: Lung volumes are low. Extensive mid and lower lung field alveolar opacification present. T rachea is midline. Heart size within normal limits. Large body habitus, portable technique and shallo w inspiration are limiting. No pneumothorax or large pleural effusion. No acute bony abnormality seen . No acute aortic findings suspected. IMPRESSION: Diffuse alveolar opacification without history that would indicate infectious pneumonia. Failure or volume overload would be the primary considerations.
--- NOTE | 2018-07-15 07:21 | EKG ---
Test Date: 2018-07-15 Test Time: 01:40:17 Survey Research Teacher: NEHEMIAS MEASUREMENT RESULTS: Intervals: Rate: 111 HI: 130 QRSD: 76 QT: 318 QTc: 432 Bryan: P: 20 HI: 130 QRS: 31 T: 21 INTERPRETIVE STATEMENTS: Sinus tachycardia Cannot rule out Anterior infarct, age undetermined Abnormal ECG Compared to ECG 01/12/2018 22:19:39 questionable myocardial infarct finding now present Sinus rhythm no longer present Electronically Signed On 07-15-18 07:20:30 ELECTROLYSIST by Jose Alfredo Dale
[2018-07-15] MEDS ORDERED: MAGNESIUM SULFATE 1 gm IVPB 1 GM/100 ML BAG IV ONE (07:30)
[2018-07-15] MEDS: INSULIN -REGULAR HUMAN 50 UNIT/0.5 ML ML SQ SCH ×4 (07:30→21:00)
[2018-07-15] MEDS ORDERED: INFLUENZA VACCINE (for 3y+) 0.5 ML DOSE IMVAC ONE (08:00)
[2018-07-15] MEDS: ALBUTEROL 2.5 MG/3 ML NEB SOL NEB PRN (08:45)
[2018-07-15] MEDS: IPRATROPIUM BROM 0.5MG/2.5ML NEB PRN (08:45)
[2018-07-15] MEDS: ENOXAPARIN 40 MG/0.4 ML SQ SCH (09:45)
--- NOTE | 2018-07-15 11:46 | RAD REPORT ---
EXAM DESCRIPTION: RAD - Chest Pa And Lat (2 Views) - 07/15/2018 11:00 am CLINICAL HISTORY: Chest pain, cough COMPARISON: June 2018 TECHNIQUE: PA and lateral views of the chest were obtained. FINDINGS: The lungs are underinflated. Mid and lower right lung field alveolar opacification is pres ent. There is patchy mid and lower left lung field opacification as well. No improvement in the patte rn since July 14. Trachea is midline. Heart size is normal and central vasculature is within no rmal limits. No pleural effusion or pneumothorax seen. No acute bony finding noted. No aortic abno rmality. IMPRESSION: Extensive bilateral airspace opacification worse on the right. Pattern is not substantia lly different from prior day study.
--- NOTE | 2018-07-15 16:41 | P.PN ---
Subjective Date of Service: 07/15/18 Primary Care Provider: Dr. Mcelroy Chief Complaint: pneumonia Subjective: Doing well Physical Examination - Vital Signs Temperature: 97.7 F Blood Pressure: 115/57 Pulse: 86 Respirations: 20 Pulse Ox (%): 94 - Physical Exam General: Alert, In no apparent distress, Cooperative HEENT: Atraumatic Neck: Supple Respiratory: Crackles/rales (Bilateral) Cardiovascular: Normal pulses, Regular rate/rhythm Gastrointestinal: Normal bowel sounds, Soft and benign, Non-distended, No tenderness, No masses, No rebound, No guarding Musculoskeletal: No erythema, No tenderness, No warmth Integumentary: No tenderness/swelling, No erythema, No warmth, No cyanosis Neurological: Normal speech, Normal strength at 5/5 x4 extr, Normal tone, Normal affect - Studies Laboratory Data (last 24 hrs) 07/15/18 01:10: PT 11.8, INR 1.00 07/15/18 01:10: Sodium 140, Potassium 3.9, BUN 10, Creatinine 0.50 L, Glucose 277 H, Total Bilirubin 0.7, AST 56 H, ALT 87 H, Alkaline Phosphatase 497 H, Lipase 130 07/15/18 01:10: WBC 8.0, Hgb 16.0 H, Hct 47.1 H, Plt Count 133 L Microbiology Data (last 24 hrs): 07/15/18 00:56 Nasopharnyx Influenza Type A Antigen Screen - Final 07/15/18 00:56 Nasopharnyx Influenza Type B Antigen Screen - Final Medications List Reviewed: Yes Assessment & Plan Discharge Plan: Home Plan to discharge in: 48 Hours Physician Review Additional Text: Impression: Acute respiratory failure with hypoxia secondary to bilateral pneumonia Diabetes mellitus type 2 [id number]-dlfgptzdn Prader Willi syndrome Hypertension Morbid obesity, BMI 65.8 Plan: Acute respiratory failure with hypoxia secondary to bilateral pneumonia: Will continue with IV antibiotic therapy. Continue IV fluids. Will maintain sats above 90%. Will try to wean off oxygen. Will monitor chest x-ray. Blood cultures obtained. Will reassess again tomorrow. Diabetes mellitus type 2 [id number]-qjnnacoyj: Will continue Accu-Cheks and sliding scale. Prader Willi syndrome: Will monitor closely. Hypertension: Will review and restart home medication. Morbid obesity, BMI 65.8: Continue to address lifestyle modification education Time Spent Managing Pts Care (In Minutes): 55
[2018-07-15] MEDS: METFORMIN ER 500 MG TAB PO SCH (21:14)
[2018-07-16] MEDS: IPRATROPIUM BROM 0.5MG/2.5ML NEB PRN ×2 (04:20→15:50)
[2018-07-16] MEDS: ALBUTEROL 2.5 MG/3 ML NEB SOL NEB PRN ×2 (04:20→15:50)
[2018-07-16] MEDS: PANTOPRAZOLE 40MG TABLET PO SCH (05:37)
[2018-07-16] MEDS ORDERED: PIPER/TAZO/NS 3.375gm 3.375 GM/100 ML BAG IVPB SCH (06:30)
--- NOTE | 2018-07-16 06:35 | P.PN ---
Date of Service: 07/16/18 Oxygen saturations have decreased; requiring increased FiO2. Will check CXR and add Zosyn to antibiotic regimen. Mental status is WNL.
[2018-07-16 06:45] LABS: Absolute Lymphocytes (CBC) 1.8 K/uL (0.7-4.9); Absolute Monocytes 0.9 K/uL (0.1-1.3); Absolute Neutrophil 5.6 K/uL (1.8-8.0); Basophils % 0.2 % (0-1.3); Eosinophils % 0.1 % (0-4.4); Hematocrit 42.4 % (36.0-45.0); Lymphocytes % 21.9 % (15.3-44.8); MCH 29.9 pg (27.0-35.0); MCV 88.5 fL (80-100); MPV 9.8 fL (7.6-11.3); Monocytes % 10.8 % (3.3-12.3); RBC Red Blood Cell Count 4.79 M/uL (3.86-4.86)
[2018-07-16] MEDS ORDERED: PIPER/TAZO/NS 3.375gm 3.375 GM/100 ML BAG ONE (06:47)
[2018-07-16 06:54] LABS: BUN Blood Urea Nitrogen 9 mg/dL (7-18); Bicarbonate 15 mmol/L (21-32); Glucose Level 146 mg/dL (74-106); Magnesium 2.2 mg/dL (1.8-2.4); Potassium 3.9 mmol/L (3.5-5.1); Sodium Level 141 mmol/L (136-145)
[2018-07-16] MEDS: INSULIN -REGULAR HUMAN 50 UNIT/0.5 ML ML SQ SCH ×4 (07:30→20:39)
[2018-07-16] MEDS ORDERED: POTASSIUM CL SA 10 MEQ TAB PO ONE (07:59)
[2018-07-16] MEDS: PIPER/TAZO/NS 3.375gm 3.375 GM/100 ML BAG IVPB SCH ×2 (09:00→16:17)
--- NOTE | 2018-07-16 09:20 | RAD REPORT ---
EXAM DESCRIPTION: Rigoberto Single View07/16/2018 8:27 am CLINICAL HISTORY: Chest pain COMPARISON: July 15, 2018 FINDINGS: Mild worsening in the right lung alveolar opacities. No significant change in the left lung opacities. Heart remains enlarged
[2018-07-16] MEDS: NA CHLORIDE 0.9% 1,000 ML IV SCH ×3 (09:21→23:05)
[2018-07-16] MEDS: METFORMIN ER 500 MG TAB PO SCH (09:44)
[2018-07-16] MEDS: ENOXAPARIN 40 MG/0.4 ML SQ SCH (09:45)
[2018-07-16] MEDS: Levofloxacin 750mg IV 750 MG/150 ML BAG IV SCH (09:46)
[2018-07-16] MEDS: ACETAMINOPHEN 500 MG TAB PO PRN (10:20)
--- NOTE | 2018-07-16 11:45 | P.PN ---
Subjective Date of Service: 07/16/18 Primary Care Provider: Dr. Mcelroy Chief Complaint: pneumonia Subjective: Other (Was doing well this morning. About an hr ago when family was present she started to have some increase respirations with her respirations about 24. O2 sats around 92% on 4 L. patient reported increased sweating.) Physical Examination - Vital Signs Temperature: 99.5 F Blood Pressure: 157/74 Pulse: 102 Respirations: 24 Pulse Ox (%): 92 - Physical Exam General: Alert, In no apparent distress, Other (Patient reports itching. Increased sweating noted. she does not look labored) HEENT: Atraumatic Neck: Supple Respiratory: Crackles/rales (Bilateral) Cardiovascular: Abnormal pulses (Minimal tachycardia) Gastrointestinal: Normal bowel sounds, Soft and benign, Non-distended, No tenderness, No masses, No rebound, No guarding, Other (Patient morbidly obese.) Integumentary: Other (Increased sweating) Neurological: Normal speech, Normal strength at 5/5 x4 extr, Normal tone, Normal affect - Studies Medications List Reviewed: Yes Assessment & Plan Discharge Plan: Home Plan to discharge in: 72 Hours Physician Review Additional Text: Impression: Acute respiratory failure with hypoxia suspect now with sepsis secondary to bilateral pneumonia need to evaluate for aspiration Diabetes mellitus type 2 [id number]-iphcofqzi Prader Willi syndrome Hypertension Morbid obesity, BMI 65.8 Plan: Acute respiratory failure with hypoxia suspect now with sepsis secondary to bilateral pneumonia need to evaluate for aspiration: Patient reports increased itching, sweating. Patient likely with underlying sepsis. Will need to rule out aspiration pneumonia. Chest x-ray reviewed. Case discussed at length with family and pulmonary. Will consult Pulmonary to further evaluate and treat. Will start BiPAP as recommended by pulmonology. Will discontinue Levaquin. Patient started on Zosyn last night. Will add vancomycin. Blood cultures so far negative. Will recheck pro calcitonin and lactic acid at this time. Will consider getting a CT scan of the chest to further assess. Patient be transferred to ICU for better monitoring. Encourage incentive spirometer. Will continue to monitor closely. Will decrease IV fluids as per recommended by pulmonology. Will check echocardiogram. Diabetes mellitus type 2 [id number]-[id number]: Will continue Accu-Cheks and sliding scale. Prader Willi syndrome: Will monitor closely. Hypertension: Will provide medication as needed.. Morbid obesity, BMI 65.8: Continue to address lifestyle modification education Time Spent Managing Pts Care (In Minutes): 55
[2018-07-16 12:57] LABS: Arterial Blood Carboxyhemoglob 1.6 % (0-1.5); Blood Gas Oxyhemoglobin 92.1 % (94-97); Blood O2 Saturation 94.4 % (92-98.5)
[2018-07-16] MEDS: VANCOMYCIN 1.75 GM in NA CHLORIDE 0.9% 500 ML IVPB SCH (13:52)
[2018-07-16] MEDS ORDERED: LORazepam 2 MG/ML VIAL IV ONE (15:56)
--- NOTE | 2018-07-16 16:52 | ECHO ---
HEIGHT: 4 ft 0 in WEIGHT: 215 lb 9.6 oz DATE OF STUDY: 07/16/[address]: Sherif Hooper DO 2-DIMENSIONAL: YES M.MODE: YES DOPPLER: YES COLOR FLOW: YES TDS: YES PORTABLE: YES DEFINITY: BUBBLE STUDY: DIAGNOSIS: SHORTNESS OF BREATH. CARDIAC HISTORY: CATHERIZATION: NO SURGERY: NO PROSTHETIC VALVE: NO PACEMAKER: NO MEASUREMENTS (cm) DIASTOLIC (NORMALS) SYSTOLIC (NORMALS) IVSd 1.1 (0.6-1.2) LA Diam 3.4 (1.9-4.0) LVEF 63% LVIDd 3.1 (3.5-5.7) LVIDs 2.1 (2.0-3.5) %FS 33% LVPWd 1.1 (0.6-1.2) Ao Diam 2.4 (2.0-3.7) 2 DIMENSIONAL ASSESSMENT: RIGHT ATRIUM: NORMAL LEFT ATRIUM: NORMAL RIGHT VENTRICLE: NORMAL LEFT VENTRICLE: NORMAL TRICUSPID VALVE: NORMAL MITRAL VALVE: NORMAL PULMONIC VALVE: NORMAL AORTIC VALVE: NORMAL PERICARDIAL EFFUSION: NONE AORTIC ROOT: NORMAL LEFT VENTRICULAR WALL MOTION: NORMAL DOPPLER/COLOR FLOW: NORMAL COMMENTS: NORMAL TWO DIMENSIONAL ECHOCARDIOGRAM WITH DOPPLER. TECHNICALLY DIFFICULT STUDY. TECHNOLOGIST: SUMEET ANDERSON
[2018-07-16] MEDS ORDERED: LORazepam 2 MG/ML VIAL IV PRN (17:48)
[2018-07-16] MEDS ORDERED: BENZONATATE 100 MG CAP PO PRN (17:49)
[2018-07-17] MEDS: PIPER/TAZO/NS 3.375gm 3.375 GM/100 ML BAG IVPB SCH ×3 (00:14→17:56)
[2018-07-17] MEDS: VANCOMYCIN 1.75 GM in NA CHLORIDE 0.9% 500 ML IVPB SCH ×2 (02:09→14:31)
[2018-07-17] MEDS: ACETAMINOPHEN 500 MG TAB PO PRN (02:48)
[2018-07-17 06:14] LABS: Absolute Monocytes 1.7 K/uL (0.1-1.3); Absolute Neutrophil 7.4 K/uL (1.8-8.0); Basophils % 0.2 % (0-1.3); Hematocrit 41.2 % (36.0-45.0); Lymphocytes % 18.1 % (15.3-44.8); MCV 88.7 fL (80-100); MPV 9.7 fL (7.6-11.3); RBC Red Blood Cell Count 4.65 M/uL (3.86-4.86)
[2018-07-17] MEDS: PANTOPRAZOLE 40MG TABLET PO SCH (06:30)
[2018-07-17 06:35] LABS: BUN Blood Urea Nitrogen 7 mg/dL (7-18); Bicarbonate 19 mmol/L (21-32); Glucose Level 173 mg/dL (74-106); Magnesium 2.1 mg/dL (1.8-2.4); Potassium 3.9 mmol/L (3.5-5.1); Sodium Level 143 mmol/L (136-145)
[2018-07-17 07:07] LABS: Arterial Blood Carboxyhemoglob 1.3 % (0-1.5); Blood Gas Oxyhemoglobin 92.4 % (94-97); Blood O2 Saturation 94.2 % (92-98.5)
[2018-07-17] MEDS: INSULIN -REGULAR HUMAN 50 UNIT/0.5 ML ML SQ SCH ×3 (07:30→19:49)
[2018-07-17] MEDS: PROPOFOL 1,000 MG/100 ML VIAL IV ONE ×2 (08:35→08:36)
[2018-07-17] MEDS: RSI MEDICATION KIT IV ONE ×2 (08:36→23:54)
[2018-07-17] MEDS: ATROPINE SULF 1 MG/10 ML SYR IV ONE ×4 (08:40→23:54)
[2018-07-17] MEDS: EPINEPHrine 1 MG/10 ML SYR ONE ×2 (08:47→23:54)
[2018-07-17] MEDS: NOREPINEPHRINE 4mg/D5W 250mL 4 MG/250 ML BAG IV ONE ×2 (09:18→23:55)
[2018-07-17] MEDS: ACETAMINOPHEN 650MG/RECT SUPP PR ONE ×2 (09:37→23:55)
[2018-07-17] MEDS ORDERED: METOPROLOL TARTRATE 5 MG/5 ML INJ IV ONE (09:48)
[2018-07-17 09:53] LABS: Absolute Monocytes 1.5 K/uL (0.1-1.3); Absolute Neutrophil 23.2 K/uL (1.8-8.0); Basophils % 0.2 % (0-1.3); Eosinophils % 6.6 % (0-4.4); Hematocrit 47.7 % (36.0-45.0); Lymphocytes % 18.1 % (15.3-44.8); MCH 29.3 pg (27.0-35.0); MCV 92.6 fL (80-100); Monocytes % 4.6 % (3.3-12.3); RBC Red Blood Cell Count 5.15 M/uL (3.86-4.86)
[2018-07-17] MEDS ORDERED: MIDAZOLAM HCL 2 MG/2 ML INJ IV PRN (10:15)
[2018-07-17] MEDS ORDERED: FENTANYL CITR 100 MCG/2 ML IV PRN (10:15)
[2018-07-17] MEDS ORDERED: NA CHLORIDE 0.9% 250 ML IV PRN (10:15)
--- NOTE | 2018-07-17 10:17 | P.CNS ---
Date of Consult: 07/17/18 Primary Care Provider: Dr. Mcelroy Chief Complaint: Respiratory failure and pneumonia History of Present Illness: Patient is 33 years of age with a history of prior Donny syndrome multiple medical problems and obesity anabolic syndrome was admitted with progressive pneumonia and developed respiratory distress transfer to the ICU placed on BiPAP which he ended up on 90% oxygen and this morning was intubated the difficult intubation she remained hypoxic and cyanotic for a little while subsequently the tube was adjusted diffuse bilateral infiltrates Allergies tranquilizer Allergy (Unknown, Uncoded 07/15/18 04:37) unknown Home Medications: Metformin ER [Glucophage ER*] 1,000 mg PO BID 01/25/13 Dulaglutide [Trulicity] 1 carlotta SQ Q7D 01/13/18 Empagliflozin [Jardiance] 1 tab PO BEDTIME 01/13/18 - Past Medical/Surgical History Diabetic: Yes -: Prader Willi Syndrome -: PING -: Morbid Obesity -: HTN -: Moderate Mental retardation -: Chronic lymphedema -: lymphedema -: Tonsillectomy -: eye sx: "dr pulled muscles" d/t drooping -: Multiple I/D's to the lower ext. due to previous infections. Psychosocial/ Personal History: Lives with family. She is dependent on her mother and father to help make decisions for her. - Family History Father Notes: no chronic illness Mother Medical History: Hypertension, Diabetes Notes: Mother not at bedside - Social History Smoking Status: Never smoker Alcohol use: No CD- Drugs: No Caffeine use: Yes Place of Residence: Home Review of Systems is unable to be obtained Physical Examination Temp Pulse Resp BP Pulse Ox 100.2 F 121 H 29 H 154/79 H 89 L 07/17/18 04:00 07/17/18 08:00 07/17/18 08:00 07/17/18 08:00 07/17/18 08:00 General: Unresponsive, Other (Morbid obesity) Neck: Supple Respiratory: Crackles/rales (Bilateral) Cardiovascular: No edema, Normal S1 S2 Gastrointestinal: Normal bowel sounds, Soft and benign - Problems (1) Acute respiratory failure Onset Date: 07/16/18 Current Visit: Yes Status: Acute Plan: Patient is 33 years of age admitted with bilateral pneumonia respiratory failure currently on a ventilator the difficult intubation she has bilateral infiltrates patient developed a metabolic acidosis progressive bilateral infiltrates white count is not elevated continue with broad-spectrum antibiotics sputum cultures deep sedation according to the apparent she is prone to agitation may need paralytic agents Lasix discuss with relative multiple chest x-rays reviewed added some Lasix Dc IV fluids 24 elder trial. With IV steroids to dampen the inflammatory response start on IV thymine and vitamin-C Qualifiers: Respiratory failure complication: hypoxia Qualified Code(s): J96.01 - Acute respiratory failure with hypoxia
[2018-07-17 10:26] LABS: Anisocytosis 1+; Blood Morphology Comment NOTED (NOT SEEN); Platelet Estimate ADEQ; Platelets, Giant FEW; Poikilocytosis 1+; Polychromasia 1+; Smudge Cells PRESENT
--- NOTE | 2018-07-17 10:42 | RAD REPORT ---
EXAM DESCRIPTION: RAD - Chest Single View - 07/17/2018 9:58 am CLINICAL HISTORY: ETT placement Chest pain. COMPARISON: Chest Single View dated 07/17/2018; Chest Single View dated 07/17/2018; Chest Single View dated 07/16/2018; Chest Pa And Lat (2 Views) dated 07/15/2018 FINDINGS: Portable technique limits examination quality. Tip of the ET tube is above the roseann. Enteric tube descends into the stomach. Extensive bilateral p ulmonary opacities are again noted, compatible with pulmonary edema, pneumonia or ARDS.
[2018-07-17] MEDS: ENOXAPARIN 40 MG/0.4 ML SQ SCH (10:44)
[2018-07-17] MEDS: METHYLPREDNISOLONE 40 MG INJ IV SCH ×2 (10:45→17:56)
[2018-07-17] MEDS: FUROSEMIDE 20 MG/ 2ML VIAL IV SCH ×2 (10:46→17:56)
[2018-07-17] MEDS: THIAMINE 200 MG/2 ML INJ IVP SCH (10:49)
--- NOTE | 2018-07-17 10:59 | RAD REPORT ---
EXAM DESCRIPTION: RAD - Chest Single View - 07/17/2018 9:39 am CLINICAL HISTORY: ETT placement Chest pain. COMPARISON: Chest Single View dated 07/17/2018; Chest Single View dated 07/16/2018; Chest Pa And Lat (2 Views) dated 07/15/2018; Chest Single View dated 07/14/2018 FINDINGS: Portable technique limits examination quality. Tip of the ET tube is in the right mainstem bronchus. Bilateral pulmonary opacities are noted, worse on the left, with significant left-sided atelectasis suspected. Enteric tube coils in the stomach
--- NOTE | 2018-07-17 11:01 | P.PN ---
Subjective Date of Service: 07/17/18 Primary Care Provider: Dr. Mcelroy Chief Complaint: Respiratory failure and pneumonia Subjective: Worsening (Patient continue to decline. Patient requiring BiPAP this morning. Repeat lab showed metabolic acidosis. Case discussed at length with family about the concern and need for intubation. Spoke with anesthesia to assess patient for intubation. Intubation was started. Intubation was very difficult. During the process patient was bagged. She became more hypoxic. Patient developed asystole given atropine and epinephrine. She also became hypotensive. CPR was initiated. Her condition continued to decline. Intubation was retried. CPR continued with resuscitation. Intubation was finely able to be established. Patient appeared to be cyanotic with decreased respirations on the left side. Endotracheal tube was adjusted. Cyanosis resolved. Oxygenation improved. CPR continued. Patient was started on dopamine. This was discontinued as blood pressures improved. There was some concern of atrial fibrillation or SVT. Patient given metoprolol with improvement. Patient eventually stablized. Care discussed with anesthesia, ER physician, pulmonology, and Cardiology. Pulmonology will monitor and adjust ventilation settings. IV steroids to be started. IV Lasix to be started. Will continue with IV antibiotic therapy. Will continue to monitor and adjust appropriately.) Physical Examination - Vital Signs Temperature: 100.2 F Blood Pressure: 125/91 Pulse: 134 Respirations: 29 Pulse Ox (%): 89 - Physical Exam General: Other (Patient intubated, sedated.) HEENT: Atraumatic Neck: Supple Respiratory: Other (Patient intubated with good air movement bilateral) Cardiovascular: Abnormal pulses (Sinus tachycardia) Gastrointestinal: Normal bowel sounds, Soft and benign, Non-distended, No tenderness, No masses, No rebound, No guarding, Other (Patient morbidly obese) Musculoskeletal: No erythema, No tenderness, No warmth Integumentary: No erythema, No warmth, No cyanosis Neurological: Normal tone Urinary: Davis catheter - Studies Medications List Reviewed: Yes Assessment & Plan Discharge Plan: LTAC Plan to discharge in: Greater than 2 days Physician Review Additional Text: Impression: Worsening acute respiratory failure with hypoxia status post difficult intubation complicated with CPR likely pulmonary edema with bilateral pneumonia versus acute respiratory distress syndrome Diabetes mellitus type 2 emk-ycvkbdv-jeotvivhm Prader Willi syndrome Hypertension Morbid obesity, BMI 65.8 Plan: Worsening acute respiratory failure with hypoxia status post difficult intubation complicated with CPR likely pulmonary edema with bilateral pneumonia versus acute respiratory distress syndrome with tachycardia: As mentioned previously her condition continued to get worse. Anesthesia called for intubation. Anesthesia had difficulty with intubation. CPR was initiated. CPR team responded. Patient ultimately intubated after difficulty. Endo trach tube adjusted. Endo trach tube now in place. Patient on ventilator. Will continue with paralytics and sedation medication to keep patient from removing tube. Will continue with IV metoprolol to help with heart rate. Pulmonology has added IV steroids and Lasix. Will continue with IV antibiotic therapy. Will continue monitor closely. Care discussed with family. They understand the severity of her illness and condition at this time. Will continue monitor closely and adjust medication. Will consult cardiology to further evaluate and treat. Patient may likely require trach in the near future. Patient will likely also require long-term acute care facility placement. Will continue to assess her mental condition as she may have underlying hypoxic injury. Diabetes mellitus type 2 xae-lwnukpm-nwwkfcxos: Will continue Accu-Cheks and sliding scale. Prader Willi syndrome: Will monitor closely. Hypertension: Will provide medication as needed.. Morbid obesity, BMI 65.8: Continue to address lifestyle modification education Critical Care: Yes (75 min along with team of anesthesia, ER physician, and pulmonology) Time Spent Managing Pts Care (In Minutes): 75
--- NOTE | 2018-07-17 11:04 | RAD REPORT ---
EXAM DESCRIPTION: RAD - Chest Single View - 07/17/2018 7:20 am CLINICAL HISTORY: desaturations Chest pain. COMPARISON: Chest Single View dated 07/16/2018; Chest Pa And Lat (2 Views) dated 07/15/2018; Chest S pablo View dated 07/14/2018; Chest Single View dated 01/12/2018 FINDINGS: Portable technique limits examination quality. Extensive bilateral pulmonary opacities are noted, progressive since the comparative study, most like ly representing pulmonary edema or pneumonia. The heart size is not well established..
[2018-07-17] MEDS ORDERED: AMIODARONE HCL 150 MG in D5W 100 ML IV STA (11:08)
[2018-07-17 11:19] LABS: Potassium 4.1 mmol/L (3.5-5.1)
[2018-07-17 11:21] LABS: Protein, Total 5.8 g/dL (6.4-8.2)
[2018-07-17 11:22] LABS: Albumin 2.6 g/dL (3.4-5.0)
[2018-07-17] MEDS: AMIODARONE HCL 450 MG in D5W 241 ML IV SCH ×2 (11:27→21:58)
[2018-07-17 12:12] LABS: Arterial Blood Carboxyhemoglob 1.4 % (0-1.5); Blood Gas Oxyhemoglobin 88.6 % (94-97); Blood O2 Saturation 90.7 % (92-98.5)
[2018-07-17] MEDS ORDERED: IBUPROFEN 100 MG/5 ML UCUP FT PRN (12:19)
[2018-07-17] MEDS ORDERED: VANCOMYCIN 1.75 GM in NA CHLORIDE 0.9% 500 ML IVPB SCH (13:00)
--- NOTE | 2018-07-17 14:46 | CON ---
Attending Physician: Dr. Hooper Reason For Consult: Atrial fibrillation. History Of Present Illness: Ms. Ennis is a 33-year-old woman, who has Prader-Willi syndrome, mo rbid obesity, short stature, mental status abnormalities, diabetes, hypertension, and came to the [facility] with pneumonia. Today, she deteriorated, required intubation. There were prolonged periods of time when she was less than ideally ventilated. She is intubated now and as she was recovering from this, she had periods of profound bradycardia and then AFib with rapid ventricular response. The pa dick has not had AFib in the past. She is unable to give any history. All the history comes from [facility] chart. Physical Examination: Vital Signs: 4 feet 0 inch tall, 204 pounds. General: Very ill appearing. Extremities: Cyanotic extremities. Lungs: Not clear. They are consistent with bilateral pneumonia. Heart: Her rhythm strip shows atrial fibrillation. Recommendations: I have recommended that we give her a bolus of amiodarone and given amiodarone drip as the best agent to try and both slow her heart rate and revert her to normal rhythm. Thank you very much for your kind referral of Ms. Ennis. I will follow her with you. GALINDO Voice ID: [id number] Report ID: [id number]
[2018-07-17] MEDS ORDERED: SUCCINYLCHOLINE 20 MG/ML (10 ML) IV ONE (15:51)
[2018-07-17] MEDS ORDERED: ATROPINE SULF IV ONE (15:51)
[2018-07-17 16:15] LABS: Arterial Blood Carboxyhemoglob 1.4 % (0-1.5); Blood Gas Oxyhemoglobin 92.9 % (94-97); Blood O2 Saturation 94.8 % (92-98.5)
[2018-07-17] MEDS: PROPOFOL 1,000 MG/100 ML VIAL IV PRN (17:30)
[2018-07-17] MEDS ORDERED: D50W 25 GM/50 ML SYRINGE IV PRN (20:04)
[2018-07-17] MEDS ORDERED: SODIUM CHLORIDE 0.9% 10ML INJ IV PRN (20:06)
[2018-07-18] MEDS: INSULIN -REGULAR HUMAN 50 UNIT/0.5 ML ML SQ SCH ×5 (00:01→19:11)
[2018-07-18] MEDS: PIPER/TAZO/NS 3.375gm 3.375 GM/100 ML BAG IVPB SCH ×3 (00:23→20:51)
[2018-07-18] MEDS: METHYLPREDNISOLONE 40 MG INJ IV SCH ×2 (00:23→09:00)
[2018-07-18] MEDS: VANCOMYCIN 1.75 GM in NA CHLORIDE 0.9% 500 ML IVPB SCH ×2 (02:00→14:05)
[2018-07-18] MEDS: PROPOFOL 1,000 MG/100 ML VIAL IV PRN ×4 (02:22→19:11)
[2018-07-18 05:38] LABS: Arterial Blood Carboxyhemoglob 1.4 % (0-1.5); Blood Gas Oxyhemoglobin 96.9 % (94-97); Blood O2 Saturation 99.2 % (92-98.5)
[2018-07-18 05:44] LABS: Absolute Lymphocytes (CBC) 3.3 K/uL (0.7-4.9); Absolute Monocytes 2.4 K/uL (0.1-1.3); Absolute Neutrophil 16.3 K/uL (1.8-8.0); Basophils % 0.4 % (0-1.3); Hematocrit 43.8 % (36.0-45.0); Lymphocytes % 14.9 % (15.3-44.8); MCH 29.9 pg (27.0-35.0); MCV 88.2 fL (80-100); MPV 9.1 fL (7.6-11.3); Monocytes % 10.7 % (3.3-12.3); RBC Red Blood Cell Count 4.96 M/uL (3.86-4.86)
[2018-07-18 06:07] LABS: Magnesium 2.2 mg/dL (1.8-2.4); Potassium 3.8 mmol/L (3.5-5.1)
[2018-07-18] MEDS: ACETAMINOPHEN 650MG/RECT SUPP PR PRN (06:15)
--- NOTE | 2018-07-18 07:33 | RAD REPORT ---
EXAM DESCRIPTION: RAD - Chest Single View - 07/18/2018 6:31 am CLINICAL HISTORY: Pneumonia, respiratory distress, intubation COMPARISON: July 17 TECHNIQUE: AP portable chest image was obtained 0542 hours . FINDINGS: Endotracheal tube is in good position. NG tube extends below the diaphragm off the field o f view. Heart size remains prominent, accentuated by shallow inspiration and portable technique. Substantial improvement in the diffuse airspace opacity seen on prior day imaging. Airspace disease r emains. No progressive lung parenchymal process. No enlarging pleural effusion. No pneumothorax. No a cute bony abnormality seen. No acute aortic findings suspected. IMPRESSION: Significant clearing of bilateral airspace opacification since prior day imaging.
--- NOTE | 2018-07-18 09:35 | P.PN ---
Subjective Date of Service: 07/18/18 Primary Care Provider: Dr. Mcelroy Chief Complaint: Respiratory failure and pneumonia Subjective: Improving (Patient seems to be clinically improving chest x-ray has improved still on propofol drip vital signs stable patient is febrile) Review of Systems is unable to be obtained Physical Examination - Vital Signs Temperature: 102 F Blood Pressure: 155/92 Pulse: 114 Respirations: 30 Pulse Ox (%): 97 - Physical Exam General: Unresponsive Respiratory: Clear to auscultation bilaterally Cardiovascular: No edema, Normal S1 S2 - Studies Medications List Reviewed: Yes Assessment & Plan - Problems (Diagnosis) (1) Acute respiratory failure Onset Date: 07/16/18 Current Visit: Yes Status: Acute Plan: Patient admitted with respiratory failure Dc steroids chest x-ray has improved white count elevated patient is hypernatremic renal function is worse of started her on D5 water start tube feeds currently on 65% oxygen PO2 143 will titrate down decrease PEEP to 10 cm patient is scheduled to have an EEG done tomorrow will try to wean off the propofol labs reviewed white count elevated cultures so far negative discuss with family members Qualifiers: Respiratory failure complication: hypoxia Qualified Code(s): J96.01 - Acute respiratory failure with hypoxia Physician Review Additional Text: Impression: Worsening acute respiratory failure with hypoxia status post difficult intubation complicated with CPR likely pulmonary edema with bilateral pneumonia versus acute respiratory distress syndrome Diabetes mellitus type 2 ukw-sldnoxq-qvxweoyzy Prader Willi syndrome Hypertension Morbid obesity, BMI 65.8 Plan: Worsening acute respiratory failure with hypoxia status post difficult intubation complicated with CPR likely pulmonary edema with bilateral pneumonia versus acute respiratory distress syndrome with tachycardia: As mentioned previously her condition continued to get worse. Anesthesia called for intubation. Anesthesia had difficulty with intubation. CPR was initiated. CPR team responded. Patient ultimately intubated after difficulty. Endo trach tube adjusted. Endo trach tube now in place. Patient on ventilator. Will continue with paralytics and sedation medication to keep patient from removing tube. Will continue with IV metoprolol to help with heart rate. Pulmonology has added IV steroids and Lasix. Will continue with IV antibiotic therapy. Will continue monitor closely. Care discussed with family. They understand the severity of her illness and condition at this time. Will continue monitor closely and adjust medication. Will consult cardiology to further evaluate and treat. Patient may likely require trach in the near future. Patient will likely also require long-term acute care facility placement. Will continue to assess her mental condition as she may have underlying hypoxic injury. Diabetes mellitus type 2 xqv-uyuawyh-ajdmgeauo: Will continue Accu-Cheks and sliding scale. Prader Willi syndrome: Will monitor closely. Hypertension: Will provide medication as needed.. Morbid obesity, BMI 65.8: Continue to address lifestyle modification education
[2018-07-18] MEDS: THIAMINE 200 MG/2 ML INJ IVP SCH (10:00)
[2018-07-18] MEDS: PANTOPRAZOLE 40 MG INJ IVP SCH (10:00)
[2018-07-18] MEDS: FUROSEMIDE 20 MG/ 2ML VIAL IV SCH ×2 (10:00→19:11)
[2018-07-18] MEDS ORDERED: D5W 1,000 ML IV SCH (10:00)
[2018-07-18] MEDS: ENOXAPARIN 40 MG/0.4 ML SQ SCH (10:00)
[2018-07-18] MEDS: ASCORBIC ACID 500 MG TABLET PO SCH (10:00)
[2018-07-18] MEDS ORDERED: WATER FOR INJ STERILE IV SCH ×2 (11:00)
[2018-07-18] MEDS ORDERED: NA BICARB IV SCH ×2 (11:00)
[2018-07-18] MEDS: AMIODARONE HCL 450 MG in D5W 241 ML IV SCH (13:08)
[2018-07-18 13:34] LABS: CKMB Creatine Kinase MB 2.2 ng/mL (0.3-3.6); Thyroid Stimulating Hormone 0.088 uIU/mL (0.360-3.740); Uric Acid 9.4 mg/dL (2.6-6.0)
[2018-07-18 13:55] LABS: Urine Appearance TURBID; Urine Bilirubin NEGATIVE (NEG); Urine Blood 3+ (NEG); Urine Color YELLOW; Urine Glucose 3+ (NEG); Urine Protein 2+ (NEG); Urine Specific Gravity 1.015 (1.005-1.030); Urine Urobilinogen 0.2 mg/dL (0.2-1.0); Urine pH 5.5 (5.0-7.0)
--- NOTE | 2018-07-18 14:04 | P.PN ---
Subjective Date of Service: 07/18/18 Primary Care Provider: Dr. Mcelroy Chief Complaint: Respiratory failure and pneumonia Subjective: Other (Patient intubated and sedated) Physical Examination - Vital Signs Temperature: 102 F Blood Pressure: 157/90 Pulse: 115 Respirations: 30 Pulse Ox (%): 97 - Physical Exam General: Other (Patient intubated and sedated) HEENT: Other (Pupils sluggish to response with light) Respiratory: Clear to auscultation bilaterally, Normal air movement Cardiovascular: Abnormal pulses (Sinus tachycardia) Gastrointestinal: Normal bowel sounds, Soft and benign Musculoskeletal: No tenderness, No warmth Integumentary: No erythema, No warmth, No cyanosis - Studies Medications List Reviewed: Yes Assessment & Plan Discharge Plan: LTAC Plan to discharge in: Greater than 2 days Physician Review Additional Text: Impression: Acute respiratory failure with hypoxia status post difficult intubation complicated with CPR secondary to pulmonary edema with bilateral pneumonia and atrial fibrillation now sinus tachycardia further complicated with acute renal failure, liver failure, and metabolic acidosis with toxic encephalopathy with suspected anoxic brain injury Hypernatremia Acute renal failure Acute liver failure Atrial fibrillation now sinus tachycardia Diabetes mellitus type 2 lyr-ojijjxu-wxnupfxtb Prader Willi syndrome Hypertension Morbid obesity, BMI 65.8 Plan: Acute respiratory failure with hypoxia status post difficult intubation complicated with CPR secondary to pulmonary edema with bilateral pneumonia and atrial fibrillation now sinus tachycardia further complicated with acute renal failure, liver failure, and metabolic acidosis with toxic encephalopathy with suspected anoxic brain injury: Patient had difficult intubation yesterday with anesthesia. CPR was initiated. Anesthesia was able to finally place endotrach tube. Patient now sedated and intubated. Will continue with IV zosyn, vancomycin, amiodarone, thiamine and lasix. Case discussed at length with family. Advanced directives readdress with family. Patient now back full code. They want to see how she progresses. Nephrology consulted to assess acute renal failure. Will consult neurology to further evaluate her condition. Case discussed at length with Neurology yesterday. Will order EEG and CT scan of the head for tomorrow. Will need to assess for anoxic brain injury. Patient will need to be off sedation to evaluate this. Pulmonary to slowly wean off ventilator. Will continue monitor electrolytes closely. Await further recommendations from nephrology, neurology, cardiology and pulmonology. If her condition is prolonged on ventilator, patient will likely require tracheotomy and long-term care facility placement. I will turn the service over to Dr. Earl tomorrow. I will go over the plan of care with her. Hypernatremia: Continue with further recommendations by nephrology. Acute renal failure: Nephrology to further evaluate and assess. Likely from CPR and hypoxia and currently on vancomycin. Nephrology added bicarb drip. Acute liver failure: Will monitor electrolytes closely. Likely from CPR and hypoxia. Patient likely with underlying fatty liver. Atrial fibrillation now sinus tachycardia: Will continue with amiodarone. Cardiology consulted. Continue with recommendation Diabetes mellitus type 2 giu-fgxjjqd-zbemuulyj: Will continue Accu-Cheks and aggressive sliding scale. Prader Willi syndrome: Will monitor closely. Hypertension: Nephrology added carvedilol 3.125 twice daily. Morbid obesity, BMI 65.8: Continue to address lifestyle modification education Time Spent Managing Pts Care (In Minutes): 55
[2018-07-18 14:25] LABS: Urine Microscopic Reflex ORDER UMIC
[2018-07-18 14:40] LABS: Urine Bacteria 20-50 /HPF (<20)
[2018-07-18 14:41] LABS: Urine Amorphous Sediment 3+ /HPF (NONE SEEN); Urine Culture Reflex Order REFLEXED; Urine Yeast MANY (NONE SEEN)
--- NOTE | 2018-07-18 16:45 | PN ---
Mrs. Ennis remains in respiratory failure, intubated. I believe she has had a long enough perio d of time when intubation was tried, that there was actually hypoxic multiorgan system failure going on now, although her creatinine is still 1.8, blood sugars are consistently in the 300s. She seems t o have a respiratory acidosis, very elevated white blood cell count. Her rhythm is rapid. I think s he goes in and out of atrial fibrillation and sinus tachycardia. Presently, she is getting an amioda andra drip and hopefully this will help her. I believe her neurological status has improved somewhat, and there is hope that she may be able to get a recovery if her pneumonia can be treated effectively . NATALIE/MODL Voice ID: [id number] Report ID: [id number]
--- NOTE | 2018-07-18 18:27 | CON ---
Date of Consultation: 07/18/2018 NEPHROLOGY CONSULTATION Additional Consulting Physician: Sherif Hooper DO. Reason For Consultation: Elevated BUN and creatinine, fluid management, acidosis, hypernatremia. History Of Present Illness: This is a 33-year-old female. All the information has been obtained fro m the record and from the family by bedside, with significant past medical history of Prader-Willi sy ndrome, mental retardation, diabetes, obesity, and obstructive sleep apnea. The patient was in her r egular state of health, was admitted on 15 of July with respiratory distress, hypoxemia. Chest x-ray showed bilateral infiltration, treated as pneumonia partly. Unfortunately, the patient had wo rsening respiratory distress. For that reason, the patient required intubation. Unfortunately, the intubation was complicated. The patient ended up coded and stayed for a little while pulseless until we managed to get intubation for her. On admission, kidney function was completely normal with GFR above 80. Gradually, her kidney function started to decline. Yesterday, creatinine was still normal . Today, creatinine 1.8. GFR dropped to 33. Reviewing the record, except of the low blood pressure and elevation in vancomycin trough up to 27, there is no other insulting factor. The patient from [facility]. The patient was on metformin. The patient did not have any CT or contrast during this hospital ization. Past Medical History: Includes: 1.Hypertension. 2.Diabetes; no neuropathy, no retinopathy. 3.Prader-Willi syndrome. Allergies: TO TRANQUILIZERS. Medications: Home medications including metformin, doxycycline, Jardiance, and Levaquin. Current medications the patient is on include: 1.Zosyn. 2.Vancomycin. 3.Lovenox. 4.Amiodarone. 5.Ibuprofen. 6.D5 at 75 per hour. Social History: Lives with the family. Denies smoking. Denies drinking. Denies drug abuse. Family History: Positive for diabetes and hypertension. Past Surgical History: Noncontributory. Review of Systems: Not obtainable. Physical Examination: Vital Signs: When I saw the patient, blood pressure 157/90, pulse of 115, fever of 102. The patient had good urine output of 1500. Chest: Crackles in bilateral base. Heart: S1, S2. Regular. Abdomen: Soft, nontender. Extremities: Trace edema. Laboratory Data: Sodium 141, potassium 3.9, bicarb 15, BUN 9, creatinine 0.3; that was on admission. Currently, sodium 146, potassium 3.8, bicarb 16, BUN 26, creatinine 1.8, anion gap of 21, blood sug ar of 384, calcium 8.2, magnesium 2.2. LFT; AST 155, ALT of 80, alkaline phosphatase being elevated of 309. PTH is still pending. TSH is still pending. Urinalysis on presentation, specific gravity o f 1.010, +3 protein. Vancomycin trough of 27. Assessment And Plan: 1.Acute kidney injury, multifactorial, secondary to poor perfusion, acute tubular necrosis secondary to shock, superimposed with metformin and vancomycin toxicity giving the elevation in alkaline phosp hatase. I need to rule out any embolic phenomena given the patient had atrial fibrillation the day b efore. I am going to go ahead and repeat urine analysis. We will send for complement and eosinophil . We will repeat LFTs. I am going to change IV fluids to be isotonic. We will switch the patient t o half normal with 1-1/2 bicarb and we will monitor. Discontinue ibuprofen given the acute kidney in jury. 2.Hypertension. Given the atrial fibrillation, I am going to place the patient on beta barb, and we will follow up the patient. Follow up with Cardiology. 3.Cardiac arrhythmia, atrial fibrillation, as by Cardiology. 4.Acidosis, high anion gap metabolic acidosis with the presence of hyperglycemia. Diabetic ketoacid osis needs to rule out. Mostly, it is secondary to lactic acidosis secondary to poor perfusion, comp ensated with hyperventilation. I am going to go ahead and send for lactic and acetone, and we will f ollow up with primary. 5.Respiratory failure secondary to pneumonia. Continue current antibiotic. Keep holding the vancom ycin for the time being as vancomycin trough has been elevated. I am going to go ahead and adjust th e Zosyn to q.12 hours given the decline in the kidney function. Follow up with Pulmonary. Given the finding on the chest x-ray, I agree with the Lasix currently. SADE/LINDSEY Voice ID: [id number] Report ID: [id number]
[2018-07-18] MEDS: CARVEDILOL 3.125 MG TAB PO SCH (19:12)
[2018-07-18] MEDS ORDERED: POTASSIUM 25 MEQ EFFERV TAB PO ONE (20:00)
[2018-07-18] MEDS: D5 0.45 NS 1,000 ML IV SCH (20:05)
[2018-07-18] MEDS: KCL 20 MEQ/100 mL IVPB 20 MEQ/100 ML BAG IV SCH ×2 (20:06→21:55)
[2018-07-19] MEDS ORDERED: INSULIN 70/30 100 UNITS/ML SQ ONE (00:04)
[2018-07-19] MEDS: INSULIN -REGULAR HUMAN 50 UNIT/0.5 ML ML SQ SCH (00:07)
[2018-07-19] MEDS ORDERED: GLUCAGON 1 MG/VIAL IM PRN (00:14)
[2018-07-19] MEDS ORDERED: D50W 25 GM/50 ML SYRINGE IV PRN (00:14)
[2018-07-19] MEDS ORDERED: NA CHLORIDE 0.9% 100 ML ONE (00:44)
[2018-07-19] MEDS: INSULIN -REGULAR HUMAN 100 UNIT in NA CHLORIDE 0.9% 100 ML IV SCH ×2 (00:45→11:28)
[2018-07-19] MEDS: ACETAMINOPHEN 500 MG TAB PO PRN ×3 (01:24→15:01)
[2018-07-19] MEDS: VANCOMYCIN 1.75 GM in NA CHLORIDE 0.9% 500 ML IVPB SCH ×2 (01:24→14:00)
[2018-07-19] MEDS: PROPOFOL 1,000 MG/100 ML VIAL IV PRN ×2 (02:22→06:53)
[2018-07-19 05:35] LABS: Arterial Blood Carboxyhemoglob 1.4 % (0-1.5); Blood Gas Oxyhemoglobin 92.8 % (94-97); Blood O2 Saturation 95.5 % (92-98.5)
[2018-07-19 05:48] LABS: Absolute Lymphocytes (CBC) 1.6 K/uL (0.7-4.9); Absolute Monocytes 1.6 K/uL (0.1-1.3); Absolute Neutrophil 15.1 K/uL (1.8-8.0); Hematocrit 39.7 % (36.0-45.0); Lymphocytes % 8.5 % (15.3-44.8); MCV 86.8 fL (80-100); MPV 8.7 fL (7.6-11.3); Monocytes % 8.5 % (3.3-12.3); RBC Red Blood Cell Count 4.57 M/uL (3.86-4.86)
[2018-07-19] MEDS: D5 0.45 NS 1,000 ML IV SCH (06:27)
[2018-07-19] MEDS: CARVEDILOL 3.125 MG TAB PO SCH ×2 (06:27→18:42)
[2018-07-19 06:32] LABS: Albumin 2.2 g/dL (3.4-5.0); Bilirubin Direct 0.5 mg/dL (0-0.2); Bilirubin Total 1.2 mg/dL (0.2-1.0); Magnesium 2.2 mg/dL (1.8-2.4); Phosphorus 2.3 mg/dL (2.5-4.9); Potassium 3.2 mmol/L (3.5-5.1); Protein, Total 5.7 g/dL (6.4-8.2)
[2018-07-19] MEDS: AMIODARONE HCL 450 MG in D5W 241 ML IV SCH ×2 (07:33→21:22)
--- NOTE | 2018-07-19 07:37 | P.PN ---
Subjective Date of Service: 07/19/18 Primary Care Provider: Dr. Mcelroy Chief Complaint: Respiratory failure and pneumonia Subjective: Improving (Patient is improving still on propofol new problems include abnormal LFTs. Severe hyperglycemia) Review of Systems is unable to be obtained Physical Examination - Vital Signs Temperature: 100.7 F Blood Pressure: 150/94 Pulse: 101 Respirations: 17 Pulse Ox (%): 98 - Physical Exam General: Unresponsive Respiratory: Clear to auscultation bilaterally Cardiovascular: Edema Gastrointestinal: Normal bowel sounds, Soft and benign - Studies Medications List Reviewed: Yes Assessment & Plan - Problems (Diagnosis) (1) Acute respiratory failure Onset Date: 07/16/18 Current Visit: Yes Status: Acute Plan: Patient admitted with respiratory failure oxygenation is doing much better she is only on 35% oxygen. Will decrease PEEP to 10 jacket changer to SIMV pressure support wean down on the propofol chest x-ray possible clearing Severe hyperglycemia patient is on an insulin drip. Will increase the drip Dc D5 water increase tube feeds So far all cultures are negative abnormal renal function tests I suspect abnormal LFTs are from the hypotension and hypoxemia Qualifiers: Respiratory failure complication: hypoxia Qualified Code(s): J96.01 - Acute respiratory failure with hypoxia Physician Review Additional Text: Impression: Acute respiratory failure with hypoxia status post difficult intubation complicated with CPR secondary to pulmonary edema with bilateral pneumonia and atrial fibrillation now sinus tachycardia further complicated with acute renal failure, liver failure, and metabolic acidosis with toxic encephalopathy with suspected anoxic brain injury Hypernatremia Acute renal failure Acute liver failure Atrial fibrillation now sinus tachycardia Diabetes mellitus type 2 adu-rlrobjx-fomeztodb Prader Willi syndrome Hypertension Morbid obesity, BMI 65.8 Plan: Acute respiratory failure with hypoxia status post difficult intubation complicated with CPR secondary to pulmonary edema with bilateral pneumonia and atrial fibrillation now sinus tachycardia further complicated with acute renal failure, liver failure, and metabolic acidosis with toxic encephalopathy with suspected anoxic brain injury: Patient had difficult intubation yesterday with anesthesia. CPR was initiated. Anesthesia was able to finally place endotrach tube. Patient now sedated and intubated. Will continue with IV zosyn, vancomycin, amiodarone, thiamine and lasix. Case discussed at length with family. Advanced directives readdress with family. Patient now back full code. They want to see how she progresses. Nephrology consulted to assess acute renal failure. Will consult neurology to further evaluate her condition. Case discussed at length with Neurology yesterday. Will order EEG and CT scan of the head for tomorrow. Will need to assess for anoxic brain injury. Patient will need to be off sedation to evaluate this. Pulmonary to slowly wean off ventilator. Will continue monitor electrolytes closely. Await further recommendations from nephrology, neurology, cardiology and pulmonology. If her condition is prolonged on ventilator, patient will likely require tracheotomy and long-term care facility placement. I will turn the service over to Dr. Earl tomorrow. I will go over the plan of care with her. Hypernatremia: Continue with further recommendations by nephrology. Acute renal failure: Nephrology to further evaluate and assess. Likely from CPR and hypoxia and currently on vancomycin. Nephrology added bicarb drip. Acute liver failure: Will monitor electrolytes closely. Likely from CPR and hypoxia. Patient likely with underlying fatty liver. Atrial fibrillation now sinus tachycardia: Will continue with amiodarone. Cardiology consulted. Continue with recommendation Diabetes mellitus type 2 bzd-vdkzktb-kzqrihnwd: Will continue Accu-Cheks and aggressive sliding scale. Prader Willi syndrome: Will monitor closely. Hypertension: Nephrology added carvedilol 3.125 twice daily. Morbid obesity, BMI 65.8: Continue to address lifestyle modification education
--- NOTE | 2018-07-19 07:46 | RAD REPORT ---
EXAM DESCRIPTION: US - Renal Ultrasound-Complete - 07/18/2018 11:16 pm CLINICAL HISTORY: . Acute renal failure COMPARISON: None. FINDINGS: The right kidney measures 12 cm with a normal echotexture. The left kidney measures the cm with a normal echotexture. Hydronephrosis is not seen. The bladder was decompressed and poorly imaged IMPRESSION: Unremarkable renal ultrasound.
[2018-07-19] MEDS ORDERED: JEVITY 1.5 CAL LIQUID 1,000 ML BOT FT SCH (08:00)
[2018-07-19] MEDS ORDERED: POTASSIUM 25 MEQ EFFERV TAB PO ONE (08:18)
[2018-07-19] MEDS: ENOXAPARIN 40 MG/0.4 ML SQ SCH (08:41)
[2018-07-19] MEDS: PIPER/TAZO/NS 3.375gm 3.375 GM/100 ML BAG IVPB SCH ×2 (08:42→21:22)
[2018-07-19] MEDS: PANTOPRAZOLE 40 MG INJ IVP SCH (08:42)
[2018-07-19] MEDS: ASCORBIC ACID 500 MG TABLET PO SCH (08:42)
[2018-07-19] MEDS: THIAMINE 200 MG/2 ML INJ IVP SCH (08:42)
--- NOTE | 2018-07-19 08:54 | RAD REPORT ---
EXAM DESCRIPTION: [facility] Single View07/19/2018 6:31 am CLINICAL HISTORY: Chest pain COMPARISON: July 18 FINDINGS: Minimal improvement in the diffuse bilateral pulmonary opacities. The heart remains enlarged. Endotracheal and nasogastric tubes remain in good position. IMPRESSION: Minimal improvement in the bilateral pulmonary opacities
[2018-07-19] MEDS ORDERED: GLUCERNA 1.5 CAL 1,000 ML BOT FT SCH (09:00)
--- NOTE | 2018-07-19 10:46 | EKG ---
Test Date: 2018-07-17 Test Time: 09:34:17 [place] Department Supervisor: AP MEASUREMENT RESULTS: Intervals: Rate: 180 KS: 104 QRSD: 74 QT: 272 QTc: 471 Dermott: P: KS: 104 QRS: 82 T: 92 INTERPRETIVE STATEMENTS: Sinus tachycardia with short KS Nonspecific ST and T wave abnormality Abnormal ECG Compared to ECG 07/15/2018 01:40:17 Short KS interval now present ST (T wave) deviation now present Myocardial infarct finding no longer present Electronically Signed On 07-19-18 10:45:27 CLERICAL METHODS ANALYST by Jose Alfredo Dale
[2018-07-19] MEDS ORDERED: Caclcium Chloride 10% INJ SYR IV ONE (11:12)
[2018-07-19] MEDS ORDERED: EPINEPHrine 1 MG/10 ML SYR IV ONE (11:12)
[2018-07-19] MEDS: ACETAMINOPHEN 650MG/RECT SUPP PR PRN (12:03)
[2018-07-19] MEDS ORDERED: HYDRALAZINE HCL 20 MG/ML VIAL IV ONE (12:03)
--- NOTE | 2018-07-19 14:31 | P.PN ---
Subjective Date of Service: 07/19/18 Primary Care Provider: Dr. Mcelroy Chief Complaint: Respiratory failure and pneumonia Patient seen and examined at bedside with RN. Chart reviewed. Case discussed with pulmonology at this time. Patient's family at bedside. Extensive discussion done regarding patient prognosis along with disease process at this time. Family not very responsive to patient's prognosis at this time. Will continue the discussion here daily. Review of Systems 10-point ROS is otherwise unremarkable Physical Examination - Vital Signs Temperature: 102.8 F Blood Pressure: 159/93 Pulse: 120 Respirations: 22 Pulse Ox (%): 93 - Physical Exam General: Other (Intubated and sedated. ) HEENT: Atraumatic, Other (Pupils are not active and reactive) Respiratory: Diminished, Rhonchi/gurgles Cardiovascular: Normal S1 S2, Irregular heart rate/rhythm, Systolic murmur Gastrointestinal: Hypoactive, Soft and benign, Non-distended Musculoskeletal: Clubbing, Swelling Neurological: Abnormal cranial nerve function, Abnormal reflexes, Abnormal affect - Studies Medications List Reviewed: Yes Assessment And Plan - Current Problems (Diagnosis) (1) Cardiopulmonary arrest Current Visit: Yes Status: Acute Plan: S.p Cardiopulmonary arrest due to Acute Respiratory Failure and difficult intubation -currently patient is intubated and sedated at this time -pulmonology is consulted and appreciated recommendations at this time. Will attempt to wean off the ventilator -responsive only to painful stimuli at this time. Pupils are nonreactive to light at this time. Gag reflex is absent as well. -neurology has been consulted. Appreciated recommendations at this time -EEG and CT scan of the head pending at this time. -Will continue with IV zosyn, vancomycin, amiodarone, thiamine and lasix. -Case DW at length with family. Advanced directives readdress with family. Patient full code. -Will need to assess for anoxic brain injury. -currently off of propofol for last 3 hr -followup with lab work and imaging results tomorrow (2) Pneumonia Onset Date: 06/13/14 Current Visit: No Status: Acute Plan: Pneumonia on the x-ray -will continue with IV vanc and Zosyn at this time -patient is currently intubated and sedated -pulmonology is consulted. Appreciated recommendations at this time Qualifiers: Pneumonia type: due to unspecified organism Laterality: bilateral Lung location: lower lobe of lung Qualified Code(s): J18.1 - Lobar pneumonia, unspecified organism (3) Diabetes mellitus type 2 Onset Date: 01/13/18 Current Visit: No Status: Chronic (4) Hypertension Current Visit: No Status: Chronic Qualifiers: Hypertension type: essential hypertension Qualified Code(s): I10 - Essential (primary) hypertension (5) Morbid obesity Current Visit: No Status: Chronic (6) Prader-Willi syndrome Current Visit: No Status: Chronic - Plan Pending clinical improvement at this time. Needs to be evaluated her in the brain injury after she is off of the sedation for 24 hr. Will assess for EEG and head CT for brain activity in 24-48 hr. Discharge Plan: Other Plan to discharge in: Greater than 2 days - Code Status/Comfort Care Code Status Assessed: Yes Critical Care: Yes
--- NOTE | 2018-07-19 15:29 | P.PN ---
Subjective Date of Service: 07/18/18 Requested by day hospitalist to assess the patient. Pt has been improving. O2 requirements have improved. Adequate UOP. Tolerating feedings but BS elevated. Start insulin drip. Overall will need aggressive diuresing and continued antibiotic support. Review of Systems 10-point ROS is otherwise unremarkable Physical Examination - Vital Signs Temperature: 102.8 F Blood Pressure: 159/93 Pulse: 120 Respirations: 22 Pulse Ox (%): 93 - Physical Exam General: Unresponsive (intubated and sedated) Respiratory: Clear to auscultation bilaterally, Normal air movement Cardiovascular: Regular rate/rhythm, Normal S1 S2, No murmurs Gastrointestinal: Normal bowel sounds, Soft and benign, Non-distended, No tenderness Musculoskeletal: No clubbing, No swelling, No tenderness Integumentary: No rashes Neurological: Normal speech, Normal tone, Sensation intact, Cranial nerves 3-12 intact, Normal affect Lymphatics: No axilla or inguinal lymphadenopathy - Studies Medications List Reviewed: Yes Assessment & Plan - Problems (Diagnosis) (1) Hyperglycemia Current Visit: Yes Status: Acute (2) Acute respiratory failure Onset Date: 07/16/18 Current Visit: Yes Status: Acute Qualifiers: Respiratory failure complication: hypoxia Qualified Code(s): J96.01 - Acute respiratory failure with hypoxia (3) Prader-Willi syndrome Current Visit: No Status: Chronic - Plan PLAN: 1. Start insulin drip 2. Continue current vent management 3. CXR with improvement 4. Continue with diuresing and antibiotics 5. GI/DVT prophylaxis Discharge Plan: Home Plan to discharge in: Greater than 2 days - Advance Directives Does patient have a Living Will: No Does patient have a Durable POA for Healthcare: No - Code Status/Comfort Care Code Status: Full Code Critical Care: No Time Spent Managing PTS Care (In Minutes): 35
[2018-07-19] MEDS ORDERED: VITAL HP 1,000 ML BOT FT SCH (18:00)
[2018-07-19] MEDS ORDERED: NA CHLORIDE 0.9% 250 ML IV ONE (22:55)
[2018-07-19] MEDS ORDERED: INSULIN -REGULAR HUMAN 50 UNIT/0.5 ML ML ONE (23:37)
[2018-07-19] MEDS ORDERED: NA CHLORIDE 0.9% 100 ML IV ONE (23:43)
[2018-07-20] MEDS: INSULIN -REGULAR HUMAN 100 UNIT in NA CHLORIDE 0.9% 100 ML IV SCH (00:19)
--- NOTE | 2018-07-20 03:50 | PN ---
Date of Progress Note: 07/19/2018 Subjective: The patient is consulted by plush cutter for elevated BUN and creatinine. The patient h as hypernatremia and metabolic acidosis. She is a 33-year-old woman with history of Prader-Willi syn drome, mental retardation, diabetes mellitus, obesity, and obstructive sleep apnea. Chest x-ray show ed bilateral infiltration and the patient is treated for pneumonia. The patient developed acute kidn ey injury. She has nonoliguric urine output. Serum creatinine has risen from 0.8 to 1.8 during this admission. The patient was found to have elevated vancomycin level and vancomycin is on hold. The patient has metformin and metformin was stopped. According to previous records, apparently the p atient was taking also ibuprofen. Review of Systems: Unobtainable. Physical Examination: Lungs: Clear to auscultation bilaterally. Heart: S1, S2. Abdomen: Soft, benign. Extremities: Edema present in both legs. Lab Work: Sodium 141, potassium 3.9, bicarbonate 15, BUN 9, and creatinine 0.3 on admission. Subseq uently, creatinine was up to 1.8 and BUN 26. Urinalysis shows 3+ protein. Vancomycin trough level w as 27. Impression And Plan: 1.Acute kidney injury, multifactorial, secondary to renal hypoperfusion, acute tubular necrosis with vancomycin toxicity. The patient is taken off metformin due to acute kidney injury. The patient is taken off vancomycin in view of vancomycin toxicity. I recommend to re-evaluate culture and do not use nonsteroidal anti-inflammatory medication which was a complicating factor. 2.Hypertension. Blood pressure is controlled. The patient has history of atrial fibrillation. The patient will continue beta-barb for blood pressure control. 3.Acidosis. The patient presented with hyperglycemia and high anion gap metabolic acidosis. The keturah jennings also was found to have positive lactic acidosis and ketoacidosis. Continue insulin drip and co ntinue IV fluids for hydration. 4.Respiratory failure and pneumonia. The patient is on Zosyn. Monitor renal function. Adjust medi cation. EB/MODL Voice ID: [id number] Report ID: [id number]
[2018-07-20 05:27] VITALS: BMI 63.6
[2018-07-20 05:44] LABS: Absolute Lymphocytes (CBC) 1.8 K/uL (0.7-4.9); Absolute Monocytes 0.8 K/uL (0.1-1.3); Absolute Neutrophil 7.3 K/uL (1.8-8.0); Basophils % 0.5 % (0-1.3); Eosinophils % 0.1 % (0-4.4); Hematocrit 36.1 % (36.0-45.0); Lymphocytes % 17.8 % (15.3-44.8); MCH 29.5 pg (27.0-35.0); MCV 85.3 fL (80-100); MPV 8.9 fL (7.6-11.3); Monocytes % 7.9 % (3.3-12.3); RBC Red Blood Cell Count 4.23 M/uL (3.86-4.86)
[2018-07-20 05:47] LABS: Arterial Blood Carboxyhemoglob 2.1 % (0-1.5); Blood Gas Oxyhemoglobin 94.4 % (94-97); Blood O2 Saturation 97.1 % (92-98.5)
[2018-07-20 06:03] LABS: Thyroid Stimulating Hormone 0.704 uIU/mL (0.360-3.740)
[2018-07-20 06:17] LABS: Protime INR 1.15
[2018-07-20 06:19] LABS: Albumin 1.9 g/dL (3.4-5.0); Bilirubin Total 1.4 mg/dL (0.2-1.0); Magnesium 2.3 mg/dL (1.8-2.4); Protein, Total 4.9 g/dL (6.4-8.2)
--- NOTE | 2018-07-20 07:05 | RAD REPORT ---
EXAM DESCRIPTION: RAD - Chest Single View - 07/20/2018 6:42 am CLINICAL HISTORY: Pneumonia, intubation COMPARISON: July 19 TECHNIQUE: AP portable chest image was obtained 0625 hours . FINDINGS: ET tube remains in good position. NG tube is below the diaphragm, off the field of view. Lung volumes remain low. Alveolar opacification is present in the mid and lower lung ward. When adj usting for technique, findings are not substantially different from comparison. Progression of diseas e is not suspected. Heart size is stable from comparison. No pneumothorax or enlarging pleural effusi on. No acute bony abnormality seen. No acute aortic findings suspected. IMPRESSION: Bilateral alveolar edema or infiltrate not substantially different from comparison. ET tube and NG tube in good position.
--- NOTE | 2018-07-20 07:43 | P.PN ---
Subjective Date of Service: 07/19/18 Review patient's chart. Family called to speak with physician. Worried about her neurologic status. There is concern about anoxic brain injury. EEG pending. CT of the brain pending. She does withdraw from pain; she had decorticate posturing however it appears she may be more decerebrate this evening. Reviewed her labs & LFTs were significantly elevated. Could be related to shock liver or amiodarone therapy. Rhythm controlled so at this time will hold off on the amiodarone and discuss with cardiology in the morning. Recheck electrolytes as cause of worsening mentation. Review of Systems 10-point ROS is otherwise unremarkable Physical Examination - Vital Signs Temperature: 100 F Blood Pressure: 114/68 Pulse: 89 Respirations: 22 Pulse Ox (%): 96 - Physical Exam General: Unresponsive (Intubated and sedated), Comatose HEENT: Atraumatic, PERRLA, EOMI Neck: Supple, JVD not distended Respiratory: Diminished, Crackles/rales Cardiovascular: Regular rate/rhythm, Normal S1 S2, No murmurs Gastrointestinal: Normal bowel sounds, Soft and benign, Non-distended, No tenderness Musculoskeletal: No clubbing, No swelling, No tenderness - Studies Microbiology Data (last 24 hrs): 07/15/18 01:10 Blood - Blood Aerobic Blood Culture - Final No growth in 5 days. 07/15/18 01:10 Blood - Blood Anaerobic Blood Culture - Final No growth in 5 days. Medications List Reviewed: Yes Assessment & Plan - Problems (Diagnosis) (1) Hyperglycemia Current Visit: Yes Status: Acute (2) Acute respiratory failure Onset Date: 07/16/18 Current Visit: Yes Status: Acute Qualifiers: Respiratory failure complication: hypoxia Qualified Code(s): J96.01 - Acute respiratory failure with hypoxia (3) Prader-Willi syndrome Current Visit: No Status: Chronic (4) Elevated LFTs Current Visit: Yes Status: Acute - Plan PLAN: 1. Stop amiodarone 2. Discuss with cardiology in a.m. 3. CXR with improvement; oxygen requirements have decreased significantly 4. Patient becoming hypernatremic. Will need to continue to monitor closely 5. CT scan and EEG pending; rule out anoxic sick brain injury - Advance Directives Does patient have a Living Will: No Does patient have a Durable POA for Healthcare: No - Code Status/Comfort Care Code Status: Full Code Critical Care: Yes Time Spent Managing PTS Care (In Minutes): 50
--- NOTE | 2018-07-20 08:38 | RAD REPORT ---
EXAM DESCRIPTION: CT - Head Brain Wo Cont - 07/20/2018 8:24 am CLINICAL HISTORY: Anoxic brain injury, encephalopathy COMPARISON: None. TECHNIQUE: Axial 5 mm thick images of the head were obtained without IV contrast. All CT scans are performed using dose optimization technique as appropriate and may include automated exposure control or mA/KV adjustment according to patient size. FINDINGS: No focal hemorrhage or mass. No midline shift. All sulci are effaced. There is complete lo ss of the tomlinson matter -white matter junction. Basilar cisterns are effaced. Small lateral ventricles are present. Third ventricle is effaced. Fourth ventricle is decreased in size. Prominence of the fal x and tentorium is believed to be the artifact of normal structures adjacent to hypodense brain. No a bnormal extra-axial fluid collections. Small amount of fluid is present in the left side mastoid air cells. Minimal air-fluid level in the l eft maxillary sinus. More prominent air-fluid levels are present in the sphenoid sinuses. NG tube and endotracheal tube are in place only partially imaged on this study. No acute bony findings. Findings telephoned to Dr. Hooper at 8:33 a.m. IMPRESSION: Diffuse anoxic brain injury. All sulci are effaced, basilar cisterns are effaced and th ere is complete loss of tomlinson matter -white matter differentiation in the cerebral and cerebellar gen spheres.
[2018-07-20] MEDS: PANTOPRAZOLE 40 MG INJ IVP SCH (08:53)
[2018-07-20] MEDS: PIPER/TAZO/NS 3.375gm 3.375 GM/100 ML BAG IVPB SCH (08:53)
[2018-07-20] MEDS: KCL 20 MEQ/100 mL IVPB 20 MEQ/100 ML BAG IV SCH ×2 (08:53→10:13)
[2018-07-20] MEDS: THIAMINE 200 MG/2 ML INJ IVP SCH (08:54)
[2018-07-20] MEDS ORDERED: D5W 1,000 ML IV SCH ×2 (09:00)
[2018-07-20] MEDS ORDERED: ENOXAPARIN 30 MG/0.3 ML SQ SCH (09:00)
[2018-07-20] MEDS ORDERED: CARVEDILOL 6.25 MG TAB PO SCH (09:00)
[2018-07-20] MEDS: ASCORBIC ACID 500 MG TABLET PO SCH (10:13)
[2018-07-20] MEDS ORDERED: VANCOMYCIN 1.75 GM in NA CHLORIDE 0.9% 500 ML IVPB SCH (12:00)
[2018-07-20] MEDS ORDERED: MORPHINE 2 MG/ML SYR IV PRN ×2 (12:27→15:27)
[2018-07-20] MEDS ORDERED: MORPHINE 2 MG/ML SYR ONE (12:45)
[2018-07-20 13:15] VITALS: BP 99/56; TEMP 99
--- NOTE | 2018-07-20 13:28 | PN ---
Date of Progress Note: 07/20/2018 Ms. Ennis has been admitted with pneumonia to Dr. Earl's service on July 15, 2018, had been followed by Dr. Dale. She is still intubated with respiratory acidosis, renal insufficiency, elev ated white count, poorly controlled blood glucose level. She is in sinus rhythm today at 70. Her pn eumonia is still being treated. She was on amiodarone, which was stopped secondary to elevated liver function tests. I agree with the present regimen. We would be available for questions if she goes back into atrial fibrillation. Certainly using IV beta blockers on an as-needed basis may be reasona ble. EVER/LINDSEY Voice ID: [id number] Report ID: [id number]
[2018-07-20 13:32] VITALS: O2SAT 95
--- NOTE | 2018-07-20 15:01 | P.PN ---
Subjective Date of Service: 07/20/18 Primary Care Provider: Dr. Mcelroy Chief Complaint: Respiratory failure and pneumonia Subjective: Other (Notes reviewed along with discussion with Dr. Flanagan( Neurology). CT scan showed swelling indicative of anoxic brain injury.) Physical Examination - Vital Signs Temperature: 99.0 F Blood Pressure: 99/56 Pulse: 82 Respirations: 22 Pulse Ox (%): 96 - Studies Microbiology Data (last 24 hrs): 07/14/18 07:35 Blood - Blood Aerobic Blood Culture - Final No growth in 5 days. 07/14/18 07:35 Blood - Blood Anaerobic Blood Culture - Final No growth in 5 days. 07/15/18 01:10 Blood - Blood Aerobic Blood Culture - Final No growth in 5 days. 07/15/18 01:10 Blood - Blood Anaerobic Blood Culture - Final No growth in 5 days. Medications List Reviewed: Yes Assessment & Plan Physician Review Additional Text: Impression: Acute respiratory failure with hypoxia status post difficult intubation complicated with CPR secondary to pulmonary edema with bilateral pneumonia and atrial fibrillation now sinus tachycardia further complicated with acute renal failure, liver failure, and metabolic acidosis with toxic encephalopathy with suspected anoxic brain injury Hypernatremia Acute renal failure Acute liver failure Atrial fibrillation now sinus tachycardia Diabetes mellitus type 2 [id number] Prader Willi syndrome Hypertension Morbid obesity, BMI 65.8 Plan: Acute respiratory failure with hypoxia status post difficult intubation complicated with CPR secondary to pulmonary edema with bilateral pneumonia and atrial fibrillation now sinus tachycardia further complicated with acute renal failure, liver failure, and metabolic acidosis with toxic encephalopathy with suspected anoxic brain injury: Patient had difficult intubation yesterday with anesthesia. CPR was initiated. Anesthesia was able to finally place endotrach tube. Patient now sedated and intubated. Will continue with IV zosyn, vancomycin, amiodarone, thiamine and lasix. Case discussed at length with family. Advanced directives readdress with family. Patient now back full code. They want to see how she progresses. Nephrology consulted to assess acute renal failure. Will consult neurology to further evaluate her condition. Case discussed at length with Neurology yesterday. Will order EEG and CT scan of the head for tomorrow. Will need to assess for anoxic brain injury. Patient will need to be off sedation to evaluate this. Pulmonary to slowly wean off ventilator. Will continue monitor electrolytes closely. Await further recommendations from nephrology, neurology, cardiology and pulmonology. If her condition is prolonged on ventilator, patient will likely require tracheotomy and long-term care facility placement. I will turn the service over to Dr. Earl tomorrow. I will go over the plan of care with her. Hypernatremia: Continue with further recommendations by nephrology. Acute renal failure: Nephrology to further evaluate and assess. Likely from CPR and hypoxia and currently on vancomycin. Nephrology added bicarb drip. Acute liver failure: Will monitor electrolytes closely. Likely from CPR and hypoxia. Patient likely with underlying fatty liver. Atrial fibrillation now sinus tachycardia: Will continue with amiodarone. Cardiology consulted. Continue with recommendation Diabetes mellitus type 2 [id number]: Will continue Accu-Cheks and aggressive sliding scale. Prader Willi syndrome: Will monitor closely. Hypertension: Nephrology added carvedilol 3.125 twice daily. Morbid obesity, BMI 65.8: Continue to address lifestyle modification education ADDENDUM: I have reviewed the case at length and discussed with Dr. Flanagan-Neurology. He expects her condition to decline more significantly over the next 24-48 hours. After a long discussion with family concerning the patient's condition and prognosis, they wish to make her DNR and withdraw care. Will proceed with withdraw of care.
[2018-07-20] MEDS ORDERED: LORazepam 2 MG/ML VIAL IV PRN (15:27)
--- NOTE | 2018-07-20 15:31 | EEG ---
CHART: [id number] TEST ID#: [id number] DATE OF STUDY: 07/19/2018 THE EEG WAS RECORDED [*] ON A 17 CHANNEL MACHINE. ELECTRODES WERE APPLIED IN THE USUAL MANNER USING THE INTERNATIONAL 10-20 SYSTEM. THE STUDY IS COMPLETELY OBSCURED BY ELECTROMYOGRAM ATRIFACT WITH NO INTERPRETABLE PORTIONS. HOWEVER, THERE APPEARS TO BE MODERATE VOLTAGE 6-10 HZ ACTIVITY DIFFUSELY EXPRESSED IN THE EEG BACKGROUND. IMPRESSION: MARKEDLY ABNORMAL EEG LARGELY OBSCURRED BY ELECTROMYOGRAM ARTIFACT. EEG BACKGROUND APPEARS TO BE DIFFUSELY SLOW. THIS STUDY IS CONSISTENT WITH SEVERE DIFFUSE DISTURBANCE IN CEREBRAL ACTIVITY BUT IS NON-SPECIFIC.
--- NOTE | 2018-07-20 17:07 | PN ---
Date of Progress Note: 07/20/2018 Subjective: The patient is still on vent CT showing hypoxemic encephalopathy. Physical Examination: Vital Signs: Blood pressure 121/68, pulse of 85, and T-max of 100. Chest: Clear to auscultation. Heart: S1, S2. Regular. Abdomen: Soft, nontender. Extremities: Plus edema. Laboratory Data: H and H 12.5/36.1. Sodium of 154, potassium 3, bicarb 29, BUN 42, creatinine 1.9, calcium 7.4. AST and ALT elevated. Current Medications: The patient on include: 1.Lovenox. 2.Zosyn q.12 h. 3.Carvedilol. 4.Hydralazine. 5.Lorazepam. 6.Sedation. 7.Breathing treatment. 8.D5 water at 100 per hour. Assessment And Plan: 1.Acute kidney injury secondary to poor perfusion, Acute tubular necrosis, plateaued to nonoliguric. No hyperkalemia or acidosis. I am going to continue to monitor the patient. 2.Keep holding vancomycin for the time being, given the acute kidney injury and elevated trough leve l. 3.Hypertension, controlled, optimal. 4.Hypernatremia. Agree with the D5. 5.Hypokalemia. We will supplement. 6.Respiratory failure. Continue supportive care. The patient has overall poor prognosis. We will follow up with the primary. YOSVANY Voice ID: [id number] Report ID: [id number]
--- NOTE | 2018-07-20 18:19 | CON ---
Reason For Consultation: Consultation called because patient is unresponsive after prolonged intubat ion. History Of Present Illness: Ms. Ennis is a 33-year-old patient with Prader-Willi syndr ome, moderate obesity, insulin-dependent diabetes mellitus, moderate mental retardation, obstructive sleep apnea, who came into [facility] on the 14 of July with progressive respiratory d istress and shortness of breath earlier in the week. She was seen by her primary care physician for similar complaints and was prescribed Augmentin. After the patient did receive Augmentin and at home as her symptoms progressed, her mother checked her blood sugars, found to be over 100 and she was br ought into [facility]. Had a temperature of 100.4 and oxygen saturation was 78% on room air . Chest x-ray shows bilateral infiltrates consistent with right base pneumonia. She was admitted fo r management in the hospital and as a result of progressive respiratory distress and developing acido sis, she was intubated. Her intubation was prolonged and there was cardiac resuscitation required. The period of time somewhere around 10 minutes perhaps or so, during that time she was hypoxic and he r blood gases on July 17, around 1209 in the afternoon showed a pH of 7.16. After the intubation, pH did improve to 7.3 and by the following day, 7.37 and yesterday 7.34, today 7.56. In terms of re sponsiveness, right after intubation, she was able to breathe over the vent. She did have withdrawal noted in the upper and lower extremities and some to stimulation in the face. This is per the [facility] staff earlier today, that is 20 of July. She had a head CT scan done that showed complete lo ss of tomlinson-white distinction indicating diffuse swelling of the brain from severe anoxic injury. Brad und that time, this morning, she was also able to do some withdrawal to noxious stimulation localized to the upper extremities, but that was lost at the time of my evaluation. At the time of my evaluat ion, the patient is resting in bed without spontaneous movements of the arms, legs, or face and she w as breathing over the vent. Past Medical History: As indicated above in addition to hypertension and chronic lymphedema. Surgical History: Tonsillectomy, left eye surgery, multiple incision and drainage of infection to th e lower extremities. Social History: The patient lives with mother and father and is totally cared by them. Medications: Metformin 1000 mg twice daily, Trulicity subcutaneously daily, Jardiance 1 at bedtime. Allergies: TO TRANQUILIZERS. Family History: Hypertension and diabetes in mother. Review of Systems: Unable to obtain review of systems at this time. Physical Examination: Vital Signs: Blood pressure ranged 99-124/56-69. Pulse from 82-90. Respiratory rate is set on the ventilator. She is breathing at around 21, ventilator set to around 12. Temperature 100.1. General: Ms. Ennis is intubated. HEENT: She is normocephalic, atraumatic. Skin: There are old healed bruises on the legs and arms. Abdomen: She is morbidly obese. She has a soft abdomen. Lungs: Decreased breath sounds bilaterally. Neurological: She has no spontaneous movements of the face, arm, or leg. No spontaneous eye opening . In terms of cranial nerve examination, no response to supraorbital pressure. Her pupils are fixed around 4-1/2 mm. No response to direct or consensual pain. She does not have the doll's eyes maneu christina. Her eyes do not fixate as you move the head, eyes move with the head. However, she is breathin g somewhat over the ventilator. No gag. Her motor examination, unable to assess upper extremities w ith no movement. She does have flexor responses when stimulating the plantar surface of the feet and that is localized to each foot. She does not have withdrawal responses at all in the upper extremit ies to noxious stimulation. Her tone is normal in the upper and lower extremities. Sensory exam, un able to assess, although she does do the response as indicated. Unable to assess coordination. Refl exes are absent in upper and lower extremities. Unable to assess her gait. Laboratory Studies: White blood cell count 9.9, 2 days ago was 33.0. Hemoglobin hematocrit are norm al. INR is normal. D-dimer elevated at 7924. Last ABG shows pH 7.56, pCO2 31.8, PO2 78.8. [employer] melony; glucose ranged from 146-205, sodium 154, potassium 3.0, chloride 116, carbon dioxide 29, BUN 42 , creatinine 1.9. AST 2655 and ALT 2269. Free TSH 1.19. Vancomycin trough 29.0 and as indicated. Head CT scan shows complete loss of tomlinson-white distinction consistent with severe cerebral anoxic inj ury. Chest x-ray, bilateral infiltrates consistent with pneumonia. Assessment: Ms. Ennis is a 33-year-old patient with severe anoxic hypoxic brain injury. Head C T scan shows complete loss of tomlinson-white distinction. She has only lower extremity reflex responses. None in the upper extremities detected. She did have an EEG yesterday that did show cortical activ ity. However, at that time, she did have some upper extremity withdrawal. None is seen at this time . Plan: She has a very poor prognosis for any meaningful recovery given her severe hypoxic and ischemi c injury. This was discussed with the family members at the bedside and they appreciated the state. In addition, they are discussing the withdrawal of ventilatory support as she has no chance of recov corey given the advanced nature of the ischemic injury. Furthermore, she has multiorgan failure at thi s time including liver, kidney, and failure of her brain function. The patient's family will decide on withdrawal of care within the next few hours to the next day and are leaning to the withdrawal of ventilation support and let the patient naturally. HUNTER/MODL Voice ID: [id number] Report ID: [id number]
--- NOTE | 2018-07-20 18:28 | P.DS ---
Admission Date: 07/15/18 Discharge Date: 07/20/18 Primary Care Provider: Dr. Mcelroy Disposition: Discharge Condition: Reason for Admission: Respiratory failure and pneumonia Consultations: Pulmonology - Dr Canales Cardiology - Dr Dale Anesthesiology - Dr. Apple Neurology - Dr. Flanagan Procedures: Central Line Placement Intubation Cardiopulmonary Resuscitation - Problems (1) Cardiopulmonary arrest Status: Acute (2) Pneumonia Onset Date: 06/13/14 Status: Acute Qualifiers: Pneumonia type: due to unspecified organism Laterality: bilateral Lung location: lower lobe of lung Qualified Code(s): J18.1 - Lobar pneumonia, unspecified organism (3) Diabetes mellitus type 2 Onset Date: 01/13/18 Status: Chronic (4) Hypertension Status: Chronic Qualifiers: Hypertension type: essential hypertension Qualified Code(s): I10 - Essential (primary) hypertension (5) Morbid obesity Status: Chronic (6) Prader-Willi syndrome Status: Chronic Brief History of Present Illness: Ms Ennis is a 33 years old woman with history of Prader-Willi Syndrome, IDDM, obesity, who start about 2 days ago with productive cough with yellow sputum, fever and some SOB. She went to her PCP yesterday and was prescribed Augmentin. Today, her mother check her BS and it was more than 600 mg/dl. She call her PCP and was referred to ED for evaluation. At presentation in ER the patient was in non-distress, temp 100.4F, elevated BP 208/117 O2 Sat 78% on RA. CXR remarkable for bilateral infiltrate, more on the right base consistent with pneumonia. Lab work is still pending due to difficult IV access. Hospital Course: Patient is a 33-year-old female with significant past medical history of diabetes, hypertension, bilateral release syndrome who presented to the ED complaining of having increasing shortness of breath and was found to have pneumonia on the chest x-ray. Patient was admitted initially to the regular medical surgical floor and was getting treatment for pneumonia. Patient was placed on IV Levaquin at that time along with all the home medications that she was on were restarted here in the hospital as well. Blood culture and sputum cultures were collected at that time as well. During the course of the hospital stay Patient started having acute respiratory failure with worsening of her shortness of breath and desaturation of her oxygen. At that time patient was placed on Venti mask, was changed to IV Zosyn and vancomycin for broader coverage for her pneumonia. Patient was not saturating well on Venti mask and thus was then switched to BiPAP. Patient's ABG on BiPAP were consistent with metabolic acidosis and patient was progressively getting worse. At that time the decision was made to intubate the patient for respiratory failure and thus was transferred to the ICU. Anesthesiology was consulted at that time due to patient's chronic history of Batsheva Donny syndrome and difficult anatomy. Intubation was attempted by the anesthesiologist however was very difficult. Patient was bagged during the time however continued to be hypoxic. Due to prolonged hypoxia secondary to difficult intubation the patient had a college you pulmonary arrest initial rhythm was bradycardia. Patient was given round of atropine and epinephrine. Intubation was finally completed however patient appeared cyanotic and there were decreased breath sounds on the right side. Endotracheal tube was adjusted and proper oxygenation was noted. Patient was successfully resuscitated at that time. Patient was also given IV metoprolol for presumed atrial fibrillation or SVT after the oxygenation had improved. Patient stabilized at that time. Family at bedside worse educated extensively regarding the prognosis given the prolonged hypoxia related to difficult intubation. Patient then was continued on IV vancomycin and Zosyn here in the hospital and was on mechanical ventilation. Hypothermia protocol was not initiated here in the hospital due to lack of appropriate equipment. Patient was also unstabhle to be transferred to a higher level of care at that time. Patient for next 24-48 hr were monitored closely. The patient was started on stress dose steroids, IV Lasix, continued on IV antibiotics. Cardiology, pulmonology, neurology was following the patient post resuscitation in the ICU. Patient did develop tachycardia and hypertensive urgency when patient was attempted to be weaned off of the ventilator. Patient was placed back on the AC mode and her vitals did stabilize while here in the hospital. Patient also continued to have temperature of 102-103 for 24-48 hr post resuscitation. Although blood cultures , sputum culture, urine culture remained negative. The repeat x-ray was done here in the hospital which was consistent with Aveolar Opacity and edema. Neurology was consulted after the resuscitation to assess for the brain function. Patient was taken off the sedation due to decreased cranial nerve reflux and EEG along with brain CT was done. Brain CT was consistent with anoxic brain injury and EEG was consistent with anoxic brain injury as well. Family was educated extensively regarding patient's status and the results from the CT brain and EEG were discussed with family by the hospitalist along with neurology and pulmonology. Patient had poor prognosis with poor quality of life. Family demonstrated understanding. Family at that time requested that care be withdrawal and and patient be made comfortable. Care was withdrawn here in the hospital. Patient was terminally extubated. Patient passed within 30 min post extubation. Please refer to the progress note and consult note from all the consultants for detail of the recommendations and events during the cardiopulmonary arrest. Vital Signs/Physical Exam: Temp Pulse Resp BP Pulse Ox 99.0 F 82 22 H 99/56 L 96 07/20/18 15:01 07/20/18 15:01 07/20/18 15:01 07/20/18 15:01 07/20/18 15:01 General: Other (Intubated with Responsive only to Painful Stimuli) Neck: Supple, Other (Central Line in place) Respiratory: Diminished, Crackles/rales, Rhonchi/gurgles Cardiovascular: Normal S1 S2, Irregular heart rate/rhythm Gastrointestinal: Normal bowel sounds, Soft and benign, Non-distended Musculoskeletal: Clubbing, Swelling Neurological: Abnormal cranial nerve function, Abnormal reflexes Urinary: Daivs catheter Laboratory Data at Discharge: WBC 9.9 K/uL (4.3-10.9) D 07/20/18 05:00 Hgb 12.5 g/dL (12.0-15.0) 07/20/18 05:00 Hct 36.1 % (36.0-45.0) 07/20/18 05:00 Plt Count 104 K/uL (152-406) L D 07/20/18 05:00 PT 13.6 SECONDS (9.5-12.5) H 07/20/18 05:00 INR 1.15 07/20/18 05:00 APTT 25.4 SECONDS (24.3-36.9) 07/20/18 05:00 Sodium 154 mmol/L (136-145) H 07/20/18 05:00 Potassium 3.0 mmol/L (3.5-5.1) L 07/20/18 05:00 BUN 42 mg/dL (7-18) H 07/20/18 05:00 Creatinine 1.90 mg/dL (0.55-1.3) H 07/20/18 05:00 Glucose 150 mg/dL (74-106) H 07/20/18 05:00 Uric Acid 9.4 mg/dL (2.6-6.0) H 07/18/18 12:42 Phosphorus 2.3 mg/dL (2.5-4.9) L 07/19/18 05:05 Magnesium 2.3 mg/dL (1.8-2.4) 07/20/18 05:00 Total Bilirubin 1.4 mg/dL (0.2-1.0) H 07/20/18 05:00 AST 2655 U/L (15-37) H* D 07/20/18 05:00 ALT 2269 U/L (12-78) H* D 07/20/18 05:00 Alkaline Phosphatase 179 U/L (45-117) H 07/20/18 05:00 Lipase 130 U/L (73-393) 07/15/18 01:10 Home Medications: Metformin ER [Glucophage ER*] 1,000 mg PO BID 01/25/13 Dulaglutide [Trulicity] 1 carlotta SQ Q7D 01/13/18 Empagliflozin [Jardiance] 1 tab PO BEDTIME 01/13/18
[2018-07-21] MEDS ORDERED: VANCOMYCIN 1.75 GM in NA CHLORIDE 0.9% 500 ML IVPB SCH (15:00)
== END 2018-07-20 16:58 | disposition expired | DRG 208 ==
LOC: ER 21:50 → 4TH 07-15 02:19 → 3RD-ICU 07-16 13:35
PROVIDERS: ADMIT Internal Medicine; ATTEND Family Medicine
PROC: 06HM33Z Insertion of Infusion Device into Right Femoral Vein, Percutaneous Approach (ICD-10-PCS; 2018-07-15)
PROC: 0BH17EZ Insertion of Endotracheal Airway into Trachea, Via Natural or Artificial Opening (ICD-10-PCS; principal; 2018-07-17)
PROC: 5A1945Z Respiratory Ventilation, 24-96 Consecutive Hours (ICD-10-PCS; 2018-07-17)
PROC: 5A12012 Performance of Cardiac Output, Single, Manual (ICD-10-PCS; 2018-07-17)
DX: J18.9 Pneumonia, unspecified organism (principal); A41.9 Sepsis, unspecified organism; J96.01 Acute respiratory failure with hypoxia; N17.0 Acute kidney failure with tubular necrosis; Z68.44 Body mass index [BMI] 60.0-69.9, adult; Q87.1 Congenital malformation syndromes predominantly associated with short stature; E87.2 Acidosis; G97.82 Other postprocedural complications and disorders of nervous system; G93.1 Anoxic brain damage, not elsewhere classified; E87.0 Hyperosmolality and hypernatremia; R57.0 Cardiogenic shock; I46.9 Cardiac arrest, cause unspecified; I48.91 Unspecified atrial fibrillation; E10.65 Type 1 diabetes mellitus with hyperglycemia; I10 Essential (primary) hypertension; E66.01 Morbid (severe) obesity due to excess calories; Y83.8 Other surgical procedures as the cause of abnormal reaction of the patient, or of later complication, without mention of misadventure at the time of the procedure; Y92.230 Patient room in hospital as the place of occurrence of the external cause; E87.6 Hypokalemia; K72.90 Hepatic failure, unspecified without coma; Z66 Do not resuscitate; T36.8X5A Adverse effect of other systemic antibiotics, initial encounter
CPT/HCPCS: 36415; 70450; 71045; 71046; 76770; 80048; 80053; 80202; 81003; 81015; 81025; 82248; 82553; 82570; 82805; 82947; 82962; 83605; 83690; 83735; 83970; 84100; 84145; 84156; 84439; 84443; 84484; 84550; 85025; 85379; 85384; 85610; 85730; 86160; 87040; 87070; 87086; 87088; 87205; 87804; 88108; 93005; 93306; 94002; 94003; 94640; 94660; 94667; 94760; 95816; 96365; 96367; 99285; C9113; J0171; J0282; J0330; J0360; J0456; J0461; J0696; J1650; J1940; J2270; J2405; J2543; J2704; J2920; J3010; J3411; J3475; J7030; J7060